=== PATIENT | male | born 1945 | race Two or more races ===

== ENCOUNTER → 2017-02-24 | Outpatient (CLI) | payer MEDICARE, MEDICAID ==
[2017-02-24 10:04] LABS: Basophils # (auto) 0 uL; Basophils % (auto) 0.5 % (0.0-2.0); DEFINITIVE VIEW TRANSMISSION; Eosinophils # (auto) 0.1 uL; Eosinophils % (auto) 1.5 % (0.0-7.0); Hematocrit 44.5 % (41.0-53.0); Hemoglobin 14.7 g/dL (13.5-17.5); Lymphocytes # (auto) 1.7 uL; Lymphocytes % (auto) 23.6 % (10.0-50.0); Mean Corpuscular Hemoglobin 34.9 pg (28.0-32.0); Mean Corpuscular Hgb Conc. 33.1 g/dL (32.0-36.0); Mean Corpuscular Volume 105.5 fL (80.0-100.0); Mean Platelet Volume 8.6 fL (7.4-10.4); Monocytes # (auto) 0.7 uL; Monocytes % (auto) 9.1 % (0.0-12.0); Neutrophils # (auto) 4.8 uL; Neutrophils % (auto) 65.3 % (37.0-80.0); Platelet Count (auto) 246 10^3/uL (140-450); Red Cell Distribution Width 16.5 % (11.6-16.0); White Blood Cell 7.3 10^3/uL (4.4-10.8)
[2017-02-24 11:17] LABS: Albumin 4.3 g/dL (3.4-5.0); BUN/Creatinine Ratio 22.4; Bilirubin, Total 2.4 mg/dL (0.2-1.0); Potassium 4.3 mmol/L (3.5-5.1); Total Protein 8.3 g/dL (6.4-8.2)
== END | disposition home or self-care (01) ==
LOC: LAB 09:14
DX: N18.3 Chronic kidney disease, stage 3 (moderate) (principal); M06.9 Rheumatoid arthritis, unspecified; M25.50 Pain in unspecified joint; D64.9 Anemia, unspecified; I10 Essential (primary) hypertension; Z79.899 Other long term (current) drug therapy
CPT/HCPCS: 36415; 80053; 85025; 85652; 86141

== ENCOUNTER → 2017-05-25 | Outpatient (CLI) | payer MEDICARE, MEDICAID ==
[2017-05-25 10:30] LABS: Basophils # (auto) 0 uL; Basophils % (auto) 0.4 % (0.0-2.0); CONDITION Y; DEFINITIVE SEE PRINTOUT; Eosinophils # (auto) 0.1 uL; Eosinophils % (auto) 1.5 % (0.0-7.0); Hematocrit 41.9 % (41.0-53.0); Hemoglobin 14.1 g/dL (13.5-17.5); Lymphocytes # (auto) 1.9 uL; Lymphocytes % (auto) 21.2 % (10.0-50.0); Mean Corpuscular Hemoglobin 34.7 pg (28.0-32.0); Mean Corpuscular Hgb Conc. 33.5 g/dL (32.0-36.0); Mean Corpuscular Volume 103.5 fL (80.0-100.0); Monocytes # (auto) 0.8 uL; Monocytes % (auto) 8.5 % (0.0-12.0); Neutrophils # (auto) 6.3 uL; Neutrophils % (auto) 68.4 % (37.0-80.0); Platelet Count (auto) 248 10^3/uL (140-450); Red Cell Distribution Width 16.6 % (11.6-16.0); White Blood Cell 9.2 10^3/uL (4.4-10.8)
[2017-05-25 10:55] LABS: Albumin 3.6 g/dL (3.4-5.0); BUN/Creatinine Ratio 14.8; Bilirubin, Total 2.4 mg/dL (0.2-1.0); Calcium 9.3 mg/dL (8.5-10.1); Potassium 4.1 mmol/L (3.5-5.1); Total Protein 6.9 g/dL (6.4-8.2)
== END | disposition home or self-care (01) ==
LOC: LAB 08:02
DX: Z79.899 Other long term (current) drug therapy (principal); M06.9 Rheumatoid arthritis, unspecified; M25.50 Pain in unspecified joint; D64.9 Anemia, unspecified; I10 Essential (primary) hypertension
CPT/HCPCS: 36415; 80053; 85025; 85652; 86141

== ENCOUNTER → 2017-08-29 | Outpatient (CLI) | payer MEDICARE, MEDICAID ==
[2017-08-29 09:43] LABS: Basophils # (auto) 0.1 uL; Eosinophils # (auto) 0.1 uL; Lymphocytes # (auto) 1.8 uL; Mean Corpuscular Volume 104.6 fL (80.0-100.0); Monocytes # (auto) 0.5 uL
[2017-08-29 09:45] LABS: Basophils % (auto) 0.7 % (0.0-2.0); Eosinophils % (auto) 1.5 % (0.0-7.0); Hematocrit 41.2 % (41.0-53.0); Hemoglobin 14.1 g/dL (13.5-17.5); Lymphocytes % (auto) 26.4 % (10.0-50.0); Mean Corpuscular Hemoglobin 35.7 pg (28.0-32.0); Mean Corpuscular Hgb Conc. 34.1 g/dL (32.0-36.0); Mean Platelet Volume 7.5 fL (6.9-10.8); Monocytes % (auto) 6.7 % (0.0-12.0); Neutrophils # (auto) 4.4 uL; Neutrophils % (auto) 64.7 % (37.0-80.0); Nucleated Red Blood Cells % 0.2 %; Platelet Count (auto) 186 10^3/uL (140-450); Red Cell Distribution Width 16.4 % (11.8-14.3); White Blood Cell 6.8 10^3/uL (4.4-10.8)
[2017-08-29 10:15] LABS: Albumin 3.6 g/dL (3.4-5.0); BUN/Creatinine Ratio 20.8; Bilirubin, Total 2.7 mg/dL (0.2-1.0); Calcium 9.5 mg/dL (8.5-10.1); Potassium 4.4 mmol/L (3.5-5.1)
== END | disposition home or self-care (01) ==
LOC: LAB 09:16
DX: M06.9 Rheumatoid arthritis, unspecified (principal); D64.9 Anemia, unspecified; I10 Essential (primary) hypertension; M25.50 Pain in unspecified joint; Z79.899 Other long term (current) drug therapy
CPT/HCPCS: 36415; 80053; 85025; 85652; 86141

== ENCOUNTER → 2017-11-23 | Outpatient (CLI) | payer MEDICARE, MEDICAID ==
[2017-11-23 08:57] LABS: Basophils % (auto) 0.6 % (0.0-2.0); Eosinophils # (auto) 0.1 uL; Hemoglobin 14.4 g/dL (13.5-17.5); Monocytes # (auto) 0.7 uL; Nucleated Red Blood Cells % 0.1 %
[2017-11-23 08:59] LABS: Basophils # (auto) 0.1 uL; Eosinophils % (auto) 1.4 % (0.0-7.0); Hematocrit 42.6 % (41.0-53.0); Lymphocytes # (auto) 1.6 uL; Lymphocytes % (auto) 19.8 % (10.0-50.0); Mean Corpuscular Hemoglobin 36.3 pg (28.0-32.0); Mean Corpuscular Hgb Conc. 33.8 g/dL (32.0-36.0); Mean Corpuscular Volume 107.6 fL (80.0-100.0); Monocytes % (auto) 8.6 % (0.0-12.0); Neutrophils # (auto) 5.6 uL; Neutrophils % (auto) 69.6 % (37.0-80.0); Platelet Count (auto) 238 10^3/uL (140-450); Red Blood Cells 3.96 10^6/uL (4.5-5.90); White Blood Cell 8.1 10^3/uL (4.4-10.8)
[2017-11-23 09:18] LABS: Albumin 3.9 g/dL (3.4-5.0); BUN/Creatinine Ratio 21.7; Bilirubin, Total 2.8 mg/dL (0.2-1.0); CRP High Sensitivity 0.05 mg/dL (< 0.3); Calcium 9.7 mg/dL (8.5-10.1); Potassium 3.9 mmol/L (3.5-5.1); Total Protein 7.8 g/dL (6.4-8.2)
== END | disposition home or self-care (01) ==
LOC: LAB 08:38
DX: I10 Essential (primary) hypertension (principal); M06.9 Rheumatoid arthritis, unspecified; E78.00 Pure hypercholesterolemia, unspecified; I70.0 Atherosclerosis of aorta; D64.9 Anemia, unspecified; Z79.899 Other long term (current) drug therapy
CPT/HCPCS: 36415; 80053; 85025; 85652; 86141

== ENCOUNTER 2020-01-23 10:33 | Inpatient (IN) | payer MEDICARE, MEDICAID ==
[~2020-01-23] VITALS: Ht 175.3 cm; Wt 73.4 kg
[~2020-01-23 10:33] MED LIST: ATOR1TAB PO; FINA5TAB4 PO; FOLI1TAB6 PO; LATA0.0015 EACHEYE; LISI-275 PO; METH2.5T3 PO; METO25TA93 PO; RIV15T PO; TAMS0.4C36 PO
[2020-01-23 11:26] LABS: Basophils # (auto) 0.1 uL; Eosinophils # (auto) 0.1 uL; Lymphocytes # (auto) 1.2 uL; Monocytes # (auto) 0.5 uL; Neutrophils # (auto) 3.5 uL; Nucleated Red Blood Cells % 0.1 %; Red Cell Distribution Width 15.9 % (11.8-14.3)
[2020-01-23 11:29] LABS: Eosinophils % (auto) 2.6 % (0.0-7.0); Hematocrit 40.2 % (41.0-53.0); Hemoglobin 13.4 g/dL (13.5-17.5); Lymphocytes % (auto) 21.8 % (10.0-50.0); Mean Corpuscular Hgb Conc. 33.2 g/dL (32.0-36.0); Mean Corpuscular Volume 102.2 fL (80.0-100.0); Monocytes % (auto) 9.4 % (0.0-12.0); Neutrophils % (auto) 65.2 % (37.0-80.0); Platelet Count (auto) 226 10^3/uL (140-450); Red Blood Cells 3.94 10^6/uL (4.5-5.90); White Blood Cell 5.4 10^3/uL (4.4-10.8)
[2020-01-23 11:41] LABS: Albumin 2.6 g/dL (3.4-5.0); Anion Gap 6 (5-15); Blood Urea Nitrogen 17 mg/dL (7-18); Calcium 8.9 mg/dL (8.5-10.1); Carbon Dioxide 24 mmol/L (21-32); Chloride 110 mmol/L (98-107); Glucose 150 mg/dL (74-106); INR 1.29 (0.9-1.15); Partial Thromboplastin Time 29.9 sec (23.64-32.05); Potassium 3.8 mmol/L (3.5-5.1); Sodium 140 mmol/L (136-145)
[2020-01-23 11:42] LABS: Urine Bacteria FEW /hpf (None Seen); Urine Blood TRACE /uL (Negative); Urine Specific Gravity 1.013 (1.001-1.035); Urine WBC 140 /hpf (0 - 3); Urine WBC Clumps PRESENT /hpf (None Seen)
[2020-01-23 11:48] LABS: Alanine Aminotransferase 35 U/L (16-61); Alkaline Phosphatase 101 U/L (45-117); Aspartate Aminotransferase 38 U/L (15-37); BUN/Creatinine Ratio 13.2; Bilirubin, Total 1.6 mg/dL (0.2-1.0); GFR African American 70 mL/min; GFR Non-African American 58 mL/min; Total Protein 6.2 g/dL (6.4-8.2)
[2020-01-23] MEDS ORDERED: cefTRIAXone 1GM/50ML D5W 50 ML IV ONE ×2 (14:15→15:00)
[2020-01-23] MEDS ORDERED: SODIUM CHLORIDE 0.9% 250 ML IV ONE (14:15)
[2020-01-23] MEDS ORDERED: MORPHINE SULF INJ 2 MG/ML SYRINGE 1ML IV PRN ×2 (15:00)
[2020-01-23] MEDS ORDERED: ACETAMINOPHEN 500 MG TAB PO PRN (15:00)
[2020-01-23] MEDS ORDERED: DEXTROSE (50%) 50ML SYRG IV PRN (15:00)
[2020-01-23] MEDS ORDERED: ONDANSETRON HCL 4 MG/2 ML VIAL IV PRN (15:00)
[2020-01-23] MEDS ORDERED: NITROGLYCERIN 0.4 MG SL TAB SL PRN (15:00)
[2020-01-23] MEDS ORDERED: traMADol HCL 50 MG TAB PO PRN (15:00)
[2020-01-23 16:20] VITALS: BP 106/73
[2020-01-23] MEDS: ACCU-CHEK COMFORT CURVE STRIP VI SCH ×2 (17:54→22:15)
[2020-01-23] MEDS: SODIUM CHLORIDE 0.9% 1,000 ML IV SCH (17:54)
[2020-01-23] MEDS ORDERED: METHOTREXATE 2.5 MG TAB PO SCH (18:00)
[2020-01-23] MEDS ORDERED: AMIODARONE HCL 200 MG TAB PO ONE (18:30)
[2020-01-23] MEDS: RIVAROXABAN 15 MG TAB PO SCH (18:52)
[2020-01-23] MEDS: TAMSULOSIN HYDROCHLORIDE 0.4 MG CAP PO SCH (18:52)
[2020-01-23 21:45] VITALS: BP 117/61
[2020-01-23] MEDS ORDERED: METOPROLOL SUCCINATE XL 50 MG TAB PO SCH (22:00)
[2020-01-23] MEDS: LATANOPROST 0.005 % OPTH(EYE) SOL 2.5ML EACHEYE SCH (22:11)
[2020-01-23] MEDS: ATORVASTATIN 20 MG TAB PO SCH (22:12)
[2020-01-23] MEDS: FAMOTIDINE 20 MG TAB PO SCH (22:12)
[2020-01-23] MEDS: AMIODARONE HCL 200 MG TAB PO SCH (22:13)
[2020-01-24] MEDS: SODIUM CHLORIDE 0.9% 1,000 ML IV SCH ×2 (02:43→11:22)
[2020-01-24 05:58] VITALS: BP 110/67
[2020-01-24] MEDS: ACCU-CHEK COMFORT CURVE STRIP VI SCH ×2 (06:37→11:05)
[2020-01-24] MEDS: FAMOTIDINE 20 MG TAB PO SCH ×2 (09:11→22:03)
[2020-01-24] MEDS: cefTRIAXone 1GM/50ML D5W 50 ML IV SCH (09:11)
[2020-01-24] MEDS: FOLIC ACID 1 MG TAB PO SCH (09:12)
[2020-01-24] MEDS: AMIODARONE HCL 200 MG TAB PO SCH (09:12)
[2020-01-24] MEDS: FINASTERIDE 5 MG TAB PO SCH (09:14)
[2020-01-24] MEDS: LISINOPRIL 5 MG TAB PO SCH (09:14)
[2020-01-24 09:27] VITALS: BP 122/72
[2020-01-24] MEDS ORDERED: ASPirin 81 mg TAB PO SCH (10:00)
[2020-01-24 13:00] VITALS: BP 113/69
[2020-01-24 17:12] VITALS: BP 101/64
[2020-01-24] MEDS: TAMSULOSIN HYDROCHLORIDE 0.4 MG CAP PO SCH (18:46)
[2020-01-24] MEDS: RIVAROXABAN 15 MG TAB PO SCH (18:46)
[2020-01-24 21:46] VITALS: BP 125/68
[2020-01-24] MEDS: LATANOPROST 0.005 % OPTH(EYE) SOL 2.5ML EACHEYE SCH (22:00)
[2020-01-24] MEDS: ATORVASTATIN 20 MG TAB PO SCH (22:03)
[2020-01-24] MEDS: METOPROLOL TARTRATE 25 MG TAB PO SCH (22:03)
[2020-01-25 05:43] VITALS: BP 133/81
[2020-01-25 06:38] LABS: Eosinophils # (auto) 0.2 uL; Eosinophils % (auto) 3.4 % (0.0-7.0); Monocytes # (auto) 0.7 uL; Neutrophils # (auto) 3.4 uL; Red Cell Distribution Width 15.5 % (11.8-14.3)
[2020-01-25 06:41] LABS: Basophils # (auto) 0.1 uL; Basophils % (auto) 1.2 % (0.0-2.0); Hematocrit 34.6 % (41.0-53.0); Hemoglobin 11.8 g/dL (13.5-17.5); Lymphocytes # (auto) 1.1 uL; Lymphocytes % (auto) 20.6 % (10.0-50.0); Mean Corpuscular Hemoglobin 34.9 pg (28.0-32.0); Mean Corpuscular Hgb Conc. 34.2 g/dL (32.0-36.0); Mean Corpuscular Volume 102.1 fL (80.0-100.0); Monocytes % (auto) 12.1 % (0.0-12.0); Neutrophils % (auto) 62.7 % (37.0-80.0); Nucleated Red Blood Cells % 0.1 %; Platelet Count (auto) 191 10^3/uL (140-450); Red Blood Cells 3.39 10^6/uL (4.5-5.90); White Blood Cell 5.4 10^3/uL (4.4-10.8)
[2020-01-25 06:58] LABS: BUN/Creatinine Ratio 11.9; Calcium 8.6 mg/dL (8.5-10.1); Potassium 3.8 mmol/L (3.5-5.1)
[2020-01-25 07:45] VITALS: BP 117/78
[2020-01-25 08:36] VITALS: BP 138/80
[2020-01-25] MEDS: cefTRIAXone 1GM/50ML D5W 50 ML IV SCH (10:09)
[2020-01-25] MEDS: FAMOTIDINE 20 MG TAB PO SCH (10:10)
[2020-01-25] MEDS: FOLIC ACID 1 MG TAB PO SCH (10:10)
[2020-01-25] MEDS: METOPROLOL TARTRATE 25 MG TAB PO SCH (10:10)
[2020-01-25] MEDS: FINASTERIDE 5 MG TAB PO SCH (10:10)
[2020-01-25] MEDS: LISINOPRIL 5 MG TAB PO SCH (10:11)
[2020-01-25 12:53] VITALS: BP 113/73
[2020-01-25 13:14] VITALS: BP 138/80
== END 2020-01-25 14:00 | disposition home or self-care (01) | DRG 309 ==
LOC: ER 10:33 → EDBD 10:33 → TELE 10:34 → TELE-EAST 16:32
PROVIDERS: ADMIT Internal Medicine; ATTEND Internal Medicine
DX: I48.91 Unspecified atrial fibrillation (principal); N39.0 Urinary tract infection, site not specified; I50.9 Heart failure, unspecified; R73.9 Hyperglycemia, unspecified; F03.90 Unspecified dementia, unspecified severity, without behavioral disturbance, psychotic disturbance, mood disturbance, and anxiety; E78.5 Hyperlipidemia, unspecified; I73.9 Peripheral vascular disease, unspecified; M06.9 Rheumatoid arthritis, unspecified; N40.0 Benign prostatic hyperplasia without lower urinary tract symptoms; B95.2 Enterococcus as the cause of diseases classified elsewhere; I11.0 Hypertensive heart disease with heart failure; Z86.73 Personal history of transient ischemic attack (TIA), and cerebral infarction without residual deficits; Z90.49 Acquired absence of other specified parts of digestive tract
CPT/HCPCS: 36415; 70450; 71045; 80048; 80053; 81001; 82550; 82962; 83036; 83880; 84443; 84484; 85025; 85610; 85730; 87081; 87086; 87088; 87186; 96361; 96365; G0378; J0696

== ENCOUNTER 2025-10-16 17:28 | Inpatient (IN) | payer MEDICARE, MEDICAID ==
[~2025-10-16] VITALS: Ht 167.6 cm; Wt 70.8 kg
[~2025-10-16 17:28] MED LIST changes: +ATOR-47 PO; -ATOR1TAB PO; +FOLI-119 PO; -FOLI1TAB6 PO; -LATA0.0015 EACHEYE; +LATA0.008 EACHEYE; +METH2.5T PO; -METH2.5T3 PO; -TAMS0.4C36 PO; +TAMS0.4C39 PO
--- NOTE | 2025-10-16 17:48 | ECG ---
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
--- NOTE | 2025-10-16 17:55 | ED.PDOC ---
HPI Comments HPI: Poor Historian. This is a 80 year old male presenting to the ED with chief complaint of back pain. Patient reports that he has been experiencing pain to just below his right scapula since last night. Patient relays that this occurred while showering. Patient denies any falls, dizziness, chest pain, SOB, N/V/D, abdominal pain, or headache. Patient later found to be in A-Fib with RVR at a rate of 131 in triage. Past Medical History: A-Fib, Dementia, CVA, HTN, HLD Past Surgical History: Denies Social History: Denies smoking, ETOH, or drug use Medications: Xarelto Allergies: NKDA BARRETT: UPPER BACK PAIN, AFIB. HPI: Poor Historian. Past Medical History: Past Surgical History: REVIEW OF SYSTEMS: CONSTITUTIONAL: Denies acute: fever, diaphoresis, chills, generalized weakness. HEAD: Denies acute: headache, photophobia Eyes: Denies acute: Double vision, vision loss, eye pain, eye discharge. EARS: Denies acute: tinnitus, hearing loss, ear discharge, ear pain, THROAT: Denies acute: sore throat, swelling, difficulty swallowing , pain with swallowing, change in voice. NECK: Denies acute: neck pain, neck swelling, stiff neck. HEART: Denies acute : chest pain, palpitations, LUNGS: Denies acute: SOB, wheezing, cough, hemoptysis ABDOMEN: Denies acute: abdominal pain, Nausea, Vomiting, diarrhea, melena , hematemesis, hematochezia SKIN: Denies acute: rash, redness, lesions, itchiness. EXTREMITIES: Denies acute: calf pain, numbness, tingling, weakness, denies pain in extremity. Denies acute: Low back pain. Neuro: Denies acute: focal neurological deficit, motor or sensory focal neurological deficit, tremors, seizure like activity, confusion, dizziness, change in mental status, loss of bowel or bladder function, cauda equina like symptoms. : Denies acute: dysuria, hematuria, flank pain, increase in urinary frequency. PSYCH: Denies acute: hallucination, suicidal ideation, homicidal ideation. PHYSICAL EXAM: General: ----no----acute distress, awake and alert. Head: normocephalic, atraumatic. No raccoon's eyes, no shafer sign. Neck: supple, trachea is midline, no swelling. Throat: Normal phonation. Eyes:, no erythema, no purulent discharge, no proptosis, no icterus. Heart: Irregular rate and rhythm consistent with atrial fibrillation with RVR, no significant murmur appreciated. Lungs: no apparent respiratory distress, Able to speak in full sentences. No wheezing, no rhonchi, no crackles. No stridors Clear to auscultation bilaterally. Abdomen: non tender to palpation, non distended, soft, no guarding, no rebound, + bowel sounds. Neuro: Awake, Alert, oriented to name, self, situation, follows commands Speech is normal. Focal area of tenderness to palpation on the right below the inferior angle of scapula. Denies any fall or trauma. Skin: no petechia, no purpura, no cyanosis, non-pale, not jaundice. Lower extremities: --no - Pitting edema no deformity, no focal swelling, no calf TTP. Makes eye contact. Face: no apparent facial droop. ED COURSE: DISCLAIMER: This medical document was created using an electronic medical record system with voice recognition software and computerized dictation system. Although this document has been carefully reviewed, there might still be some phonetic and typographical errors. Occasional wrong-word or "sound-alike" substitutions may have occurred due to the inherent limitations of voice recognition software. These areas are purely typographical due to imperfections of the software programs and do not reflect any compromise in the patient's medical care. Please read the chart carefully and recognize, using context, where these substitutions have occurred. Chief Complaint: Chest Pain Time Seen by MD: 17:52 Primary Care Provider: CHERRIE Reviewed Notes: Medications, Allergies Allergies: Coded Allergies: NO KNOWN ALLERGIES (Unverified , 01/11/20) Home Meds Reported Medications Latanoprost (LATANOPROST) 0.005 % Anne, 1 DROP EACHEYE qhs, #7.5 ML 3 Refills 01/12/20 Metoprolol Succinate (Metoprolol Succinate Er) 25 Mg Tab, 25 MG PO BID for 30 Days, MG 01/12/20 Folic Acid (Folic Acid) 1 Mg Tab, 1 MG PO DAILY for 30 Days, MG 2/16/20 Finasteride (Finasteride) 5 Mg Tab, 5 MG PO DAILY for 30 Days, MG 01/12/20 Methotrexate (Methotrexate) 2.5 Mg Tab, 10 MG PO QWEEKLY, MG 01/12/20 Tamsulosin Hcl (Tamsulosin Hcl) 0.4 Mg Cap, 0.4 MG PO QPM for 30 Days, MG 01/12/20 Lisinopril (Lisinopril) 5 Mg Tab, 5 MG PO DAILY for 30 Days, MG 01/12/20 Rivaroxaban (Xarelto Tablet) 15 Mg Tb, 15 MG PO DAILY, TAB 01/12/20 Atorvastatin Calcium (ATORVASTATIN CALCIUM) 80 Mg Tab, 1 TAB PO DAILY, #30 TAB 5 Refills 01/12/20 Information Source: Patient Mode of Arrival: Ambulatory EKG EKG : Pulse Rate (adult): 131 Cardiac Rhythm: Afib Comments With RVR Was a procedure done? Was a procedure done?: No CP Differential Dx Differential Diagnosis: A-fib, A-Flutter, Angina, Anxiety / Panic Attack, Atrial Dysrhythmia, Digoxin Toxicity, Electrolyte Disorder, Heart Failure, Hyperthyroidism, Hyperventilation, Hypoxia, MAT, OR, PAC's, Pacemaker Malfunction, PSVT, Pulmonary Embolus, PVC's, Renal Failure, Sinus Tachycardia, Torsades De Pointes, Ventricular Dysrhythmia, V-Fib, V-Tach, WPW X-Ray, Labs, Meds, VS Vital Signs Date Time Temp Pulse Resp B/P (MAP) Pulse Ox O2 Delivery O2 Flow Rate FiO2 10/16/25 20:38 98 10/16/25 20:15 86 17 152/80 (104) 100 10/16/25 20:00 93 10/16/25 18:30 102 10/16/25 18:23 101 16 100 Room Air* 0 21 10/16/25 18:23 97.8 101 16 129/74 (92) 99 97.8 10/16/25 17:55 131 10/16/25 17:46 131 10/16/25 17:30 64 16 117/63 Lab Test 10/16/25 18:39 10/16/25 17:48 Range/Units Troponin I High Sensitivity 10 11 </=54 ng/L Hepatitis A Antibody Total Positive H Negative Hepatitis B Surface Antigen Negative Negative Hepatitis B Surface Antibody Negative Negative Hepatitis B Core Total Antibody Negative Negative Hepatitis C Antibody Negative Negative White Blood Count 5.7 4.4-10.8 10^3/uL Red Blood Count 3.19 L 4.5-5.90 10^6/uL Hemoglobin 11.2 L 13.5-17.5 g/dL Hematocrit 33.8 L 41.0-53.0 % Mean Corpuscular Volume 106.0 H 80.0-100.0 fL Mean Corpuscular Hemoglobin 35.3 H 28.0-32.0 pg Mean Corpuscular Hemoglobin Concent 33.3 32.0-36.0 g/dL Red Cell Distribution Width 16.7 H 11.8-14.3 % Platelet Count 76 L 140-450 10^3/uL Mean Platelet Volume 8.4 6.9-10.8 fL Neutrophils (%) (Auto) 84.4 H 37.0-80.0 % Lymphocytes (%) (Auto) 13.4 10.0-50.0 % Monocytes (%) (Auto) 1.6 0.0-12.0 % Eosinophils (%) (Auto) 0.4 0.0-7.0 % Basophils (%) (Auto) 0.2 0.0-2.0 % Neutrophils # (Auto) 4.8 1.6-8.6 10 ^3/uL Lymphocytes # (Auto) 0.8 0.4-5.4 10 ^3/uL Monocytes # (Auto) 0.1 0-1.3 10 ^3/uL Eosinophils # (Auto) 0 0-0.8 10 ^3/uL Basophils # (Auto) 0 0-0.2 10 ^3/uL Nucleated Red Blood Cells 0.2 % Sodium Level 141 136-145 mmol/L Potassium Level 3.9 3.5-5.1 mmol/L Chloride Level 107 98-107 mmol/L Carbon Dioxide Level 18 L 20-31 mmol/L Anion Gap 16 H 5-15 Blood Urea Nitrogen 41 H 9-23 mg/dL Creatinine 1.07 0.700-1.30 mg/dL Glomerular Filtration Rate Calc 69 >90 mL/min BUN/Creatinine Ratio 38.3 H 10.0-20.0 Serum Glucose 156 H 74-106 mg/dL Hemoglobin A1c 5.9 H <5.7 % A1C Calcium Level 9.5 8.7-10.4 mg/dL Magnesium Level 1.9 1.6-2.6 mg/dL Total Bilirubin 4.4 H 0.2-1.0 mg/dL Aspartate Amino Transferase (AST) 66 H 13-40 U/L Alanine Aminotransferase (ALT) 114 H 7-40 U/L Alkaline Phosphatase 91 46-116 U/L B-Type Natriuretic Peptide 151.31 0-100 pg/mL Total Protein 6.3 5.7-8.2 g/dL Albumin 3.7 3.2-4.8 g/dL [place] [id number] Ph: [phone] DIAGNOSTIC IMAGING Diagnostic Imaging Report : [id number] Signed PATIENT: ISIS BARRETT ACCT: [id number] UNIT: [id number] : 1945 LOC: ER ROOM / BED: / AGE / SEX: 80 / M ADM STATUS: REG ER SERVICE 39 ORDERING PHYSICIAN: ROMERO MARTINEZ DO PROCEDURE(s): CXRP - CHEST PORTABLE REASON: chest pain ORDER NUMBER(s): [id number], ACCESSION NUMBER(s): [id number] EXAM: XY CHEST PORTABLE HISTORY: chest pain TECHNIQUE: 1 view of the chest COMPARISON: None FINDINGS/IMPRESSION: LUNGS: No pleural effusion, consolidation, or pneumothorax. MEDIASTINUM: Unremarkable. BONES: No acute osseous abnormality. Left shoulder arthroplasty. Question sequelae of prior left lateral upper rib fractures. OTHER: None. ATED BY: DWIGHT CHAVEZ MD DICTATED DATE/TIME: 10/16/251855 SIGNED BY: DWIGHT CHAVEZ MD SIGNED DATE/TIME: 10/16/251855 CC: Time of 1ST Reevaluation: 18:52 Reevaluation 1ST: Unchanged Patient Education/Counseling: Diagnosis, Treatment Family Education/Counseling: No Family Present Comments MDM: patient presented with the above HPI.---cardiac---workup was initiated. patient was found with the above mentioned diagnosis. the following medications were ordered: please refer to order lists of meds and tests obtained by myself Dr. Martinez. Patient ED course and VS have been stabilized. Patient has been reassessed in the ED and remained in a stable condition. Patient has been observed in the ED adequate length of time to insure improvement/stability. Escalation of care considered: Consideration of escalation to observation or admission Patient has been in and out of atrial fibrillation with RVR. Patient was ADMITTED to the medicine team for further evaluation and treatment of their presentation. All the reports of any imaging studies that were ordered by myself were reviewed by myself. Departure 1 Departure Time of Disposition: 19:16 Impression: Primary Impression: Atrial fibrillation with RVR Additional Impressions: Hyperbilirubinemia Thrombocytopenia Disposition: ADMITTED INPATIENT Admit to: Tele Condition: Guarded Discharged With: Self Critical Care Note Critical Care Time?: Yes (45 min-critical care time only) Heart Score Heart Score: Heart Score Response (Comments) Value History Slightly Suspicious 0 EKG Repolarization Disturb 1 Age >65 2 Risk Factors >3 or Hx ASHD 2 Troponin Normal limit 0 Total 5 I personally scribed for ROMERO MARTINEZ DO ([email or web address]) on 10/16/25 at 17:55. Electronically submitted by Vinayak Benoit ([email or web address]). I personally scribed for ROMERO MARTINEZ DO ([email or web address]) on 10/16/25 at 21:54. Electronically submitted by Cindy Rojas ([email or web address]). ROMERO MARTINEZ DO Oct 16, 2025 17:55
[2025-10-16 18:01] LABS: Mean Corpuscular Hemoglobin 35.3 pg (28.0-32.0); Nucleated Red Blood Cells % 0.2 %
[2025-10-16 18:03] LABS: Hematocrit 33.8 % (41.0-53.0); Hemoglobin 11.2 g/dL (13.5-17.5); Mean Corpuscular Volume 106.0 fL (80.0-100.0)
[2025-10-16 18:18] LABS: Albumin 3.7 g/dL (3.2-4.8); Alkaline Phosphatase 91 U/L (46-116); Anion Gap 16 (5-15); BUN/Creatinine Ratio 38.3 (10.0-20.0); Calcium 9.5 mg/dL (8.7-10.4); Potassium 3.9 mmol/L (3.5-5.1); Sodium 141 mmol/L (136-145); Total Protein 6.3 g/dL (5.7-8.2)
[2025-10-16 18:23] VITALS: PULSE 101; RESP 16; O2SAT 100
[2025-10-16 18:24] LABS: Alanine Aminotransferase 114 U/L (7-40); Bilirubin, Total 4.4 mg/dL (0.2-1.0); Blood Urea Nitrogen 41 mg/dL (9-23); Carbon Dioxide 18 mmol/L (20-31); Chloride 107 mmol/L (98-107); Glucose 156 mg/dL (74-106)
--- NOTE | 2025-10-16 18:59 | DVH ---
EXAM: XY CHEST PORTABLE HISTORY: chest pain TECHNIQUE: 1 view of the chest COMPARISON: None FINDINGS/IMPRESSION: LUNGS: No pleural effusion, consolidation, or pneumothorax. MEDIASTINUM: Unremarkable. BONES: No acute osseous abnormality. Left shoulder arthroplasty. Question sequelae of prior left lateral upper rib fractures. OTHER: None.
--- NOTE | 2025-10-16 19:09 | ECG ---
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
--- NOTE | 2025-10-16 20:57 | DVHHPRES ---
History of Present Illness Resident Creating Document: JERALD PAL History of Present Illness Mr. Garth Phillip, an 80 year old male with past medical history of AFib on rivaroxaban, dementia , hypertension, questionable CVA, UTI two years ago, PAD. with history of UNDERCOATER at [facility], stomach surgery for unknown indications at [facility], presented to the ER with the complaints of left-sided CVA shoulder pain and lower back pain. The son was accompanying the patient. The patient denies any chest pain, shortness of breath, fever, urinary symptoms frequency, urgency, burning sensation or any other complaints. The shoulder pain is new onset since last three days. Past medical history: As above Past surgical history: As above Allergies: None Smoking: Never Alcohol: Quit many years ago. Previously heavy drinker Drugs: Denied Home medications: Apixaban, atorvastatin, finasteride, folic acid, latanoprost, lisinopril, metoprolol succinate, tamsulosin Code status: Full code, patient wants to donate all his organ. Review of Systems Musculoskeletal: shoulder pain Allergies: Coded Allergies: NO KNOWN ALLERGIES (Unverified , 01/11/20) Exam Vital Signs Vital Signs Date Time Temp Pulse Resp B/P (MAP) Pulse Ox O2 Delivery O2 Flow Rate FiO2 10/16/25 20:15 86 17 152/80 (104) 100 10/16/25 18:23 Room Air* 0 21 10/16/25 18:23 97.8 97.8 Exam Pt is lying on bed General Appearance: Alert, Oriented X3, Cooperative, Mild distress HEENT: Atraumatic, Mucous membranes moist/pink Respiratory: Clear to auscultation, Normal air movement, No added sounds Cardiovascular: Irregular rate, Normal S1, Normal S2, No murmurs Abdominal/ : Active bowel sounds, Soft, no distention, no tenderness Extremities: No edema, Normal pulses, left shoulder tenderness Skin: No Significant rash, except past surgical scars Neuro: Normal speech, sensorimotor deficits none Psych/Mental Status: Mental status NL, Mood NL Nurse was there as geriatric care manager during examination Labs/Xrays Labs Test 10/16/25 18:39 10/16/25 17:48 Range/Units Troponin I High Sensitivity 10 </=54 ng/L White Blood Count 5.7 4.4-10.8 10^3/uL Red Blood Count 3.19 L 4.5-5.90 10^6/uL Hemoglobin 11.2 L 13.5-17.5 g/dL Hematocrit 33.8 L 41.0-53.0 % Mean Corpuscular Volume 106.0 H 80.0-100.0 fL Mean Corpuscular Hemoglobin 35.3 H 28.0-32.0 pg Mean Corpuscular Hemoglobin Concent 33.3 32.0-36.0 g/dL Red Cell Distribution Width 16.7 H 11.8-14.3 % Platelet Count 76 L 140-450 10^3/uL Mean Platelet Volume 8.4 6.9-10.8 fL Neutrophils (%) (Auto) 84.4 H 37.0-80.0 % Lymphocytes (%) (Auto) 13.4 10.0-50.0 % Monocytes (%) (Auto) 1.6 0.0-12.0 % Eosinophils (%) (Auto) 0.4 0.0-7.0 % Basophils (%) (Auto) 0.2 0.0-2.0 % Neutrophils # (Auto) 4.8 1.6-8.6 10 ^3/uL Lymphocytes # (Auto) 0.8 0.4-5.4 10 ^3/uL Monocytes # (Auto) 0.1 0-1.3 10 ^3/uL Eosinophils # (Auto) 0 0-0.8 10 ^3/uL Basophils # (Auto) 0 0-0.2 10 ^3/uL Nucleated Red Blood Cells 0.2 % Sodium Level 141 136-145 mmol/L Potassium Level 3.9 3.5-5.1 mmol/L Chloride Level 107 98-107 mmol/L Carbon Dioxide Level 18 L 20-31 mmol/L Anion Gap 16 H 5-15 Blood Urea Nitrogen 41 H 9-23 mg/dL Creatinine 1.07 0.700-1.30 mg/dL Glomerular Filtration Rate Calc 69 >90 mL/min BUN/Creatinine Ratio 38.3 H 10.0-20.0 Serum Glucose 156 H 74-106 mg/dL Calcium Level 9.5 8.7-10.4 mg/dL Magnesium Level 1.9 1.6-2.6 mg/dL Total Bilirubin 4.4 H 0.2-1.0 mg/dL Aspartate Amino Transferase (AST) 66 H 13-40 U/L Alanine Aminotransferase (ALT) 114 H 7-40 U/L Alkaline Phosphatase 91 46-116 U/L B-Type Natriuretic Peptide 151.31 0-100 pg/mL Total Protein 6.3 5.7-8.2 g/dL Albumin 3.7 3.2-4.8 g/dL SEPSIS Sepsis Screen Date sepsis recognized/suspect: Oct 16, 2025 Time Sepsis recognized/suspect: 1734 Recent Procedure: No On Antibiotic Therapy: No Respiratory Rate >20: No Heart Rate >90: No Temp<36 C (96.8 F) or >38.3 C: No SBP <90 or MAP <65 mmHG: No New Acute Mental Status Change: No Is the patient on CPAP, BIPAP,: No Physician Orders Chest Portable (10/16/25 17:40) Urinalysis (10/16/25 17:30) Electrocardigram (10/16/25 17:30) Electrocardigram (10/16/25 18:30) Electrocardigram (10/16/25 20:30) Admit (10/16/25 20:48) Notify Md Of Changes From Base (10/16/25 20:48) Emergency Dysrhythmia Protocol (10/16/25 20:48) Rhythm Strips Once Every Shift (10/16/25 20:48) Drafter Commercial For 24 Hours (10/16/25 20:48) Enoxaparin Sodium (Lovenox) (10/17/25 10:00) Urinalysis (10/16/25 20:50) Drug Screen (10/16/25 20:50) Blood Alcohol (10/16/25 20:50) Comprehensive Hepatitis Panel (10/16/25 20:50) PTPTT (10/16/25 20:50) LIVER (10/16/25 20:50) Vital Signs Date Time Temp Pulse Resp B/P (MAP) Pulse Ox O2 Delivery O2 Flow Rate FiO2 10/16/25 20:15 86 17 152/80 (104) 100 10/16/25 20:00 93 10/16/25 18:30 102 10/16/25 18:23 101 16 100 Room Air* 0 21 10/16/25 18:23 97.8 101 16 129/74 (92) 99 97.8 10/16/25 17:55 131 10/16/25 17:46 131 10/16/25 17:30 64 16 117/63 Laboratory Tests Test 10/16/25 17:48 White Blood Count 5.7 10^3/uL (4.4-10.8) Assessment/Plan Assessment/Plan AFib with RVR with secondary hypercoagulable state (ChadVasc 6) -metoprolol succinate -therapeutic Lovenox -CXR ordered Acute complicated UTI -urinalysis: UTI -IV ceftriaxone -urine bacterial culture ordered Hypertensive heart disease with possible chronic diastolic heart failure - Lisinopril 5 mg Prediabetic, HbA1c 5.9 - counseled patient regarding weight loss, lifestyle modification and physical exercise BPH - Tamsulosin GI prophylaxis: Pantoprazole DVT prophylaxis: Lovenox Diet: Cardiac Goals of care discussed with the patient for more than 27 minutes: Full code status Case discussed with Dr. Kelley, patient and RN Plan discussed with: Patient, Other (RN) My Orders Orders - JERALD PAL RESIDENT Procedure Category Date Status Time Admit ADMIT 10/16/25 Transmitted 20:48 Notify Of Changes [facility] 10/16/25 In Process From Base 20:48 Emergency Dysrhythmia [facility] 10/16/25 In Process Protocol 20:48 Rhythm Strips Once [facility] 10/16/25 In Process Every Shift 20:48 Drafter Commercial For [facility] 10/16/25 In Process 24 Hours 20:48 Enoxaparin Sodium PHA 10/17/25 Logged (Lovenox) 10:00 Urinalysis LAB 10/16/25 Logged 20:50 Drug Screen LAB 10/16/25 Logged 20:50 Blood Alcohol LAB 10/16/25 Logged 20:50 Comprehensive LAB 10/16/25 Logged Hepatitis Panel 20:50 PTPTT LAB 10/16/25 Logged 20:50 LIVER US 10/16/25 Logged 20:50 Date of Service: Oct 17, 2025 Billing Provider: JAMARCUS KELLEY MD Common Visit Codes: 48057-BCO/OBS SAME DATE (HIGH) Secondary Visit Codes: 03442-RREPVAJX CARE PLAN 30 MINUTES JERALD PAL RESIDENT Oct 16, 2025 20:57 SANYA LARA RESIDENT Oct 17, 2025 00:56
[2025-10-16] MEDS ORDERED: ENOXAPARIN SOD 60 MG/0.6 ML SYRINGE SC SCH (21:15)
[2025-10-16] MEDS ORDERED: HYDROcodone-ACET 5/325MG TAB PO PRN (21:30)
[2025-10-16 21:33] LABS: Urine Protein, UAD TRACE (Negative)
[2025-10-16 21:42] LABS: INR 1.06 (0.9-1.15); Partial Thromboplastin Time 22.9 SEC (24.5-34.5); Prothrombin Time 11.2 sec (9.3-11.8)
[2025-10-16 21:47] LABS: Amphetamine Screen, Urine Neg (NEGATIVE)
--- NOTE | 2025-10-16 21:51 | DVH ---
XY L SHOULDER 2+ VIEW XRAY Indication: 80 years old, Male; Lt shoulder pain. Comparison: None Findings: No acute fracture or dislocation. Left shoulder arthroplasty. Intact hardware. IMPRESSION: NO ACUTE FRACTURE OR DISLOCATION.
[2025-10-16 21:56] LABS: Barbiturate Scree,Urine Neg (NEGATIVE); Benzodiazephine Screen, Urine Neg (NEGATIVE); Cannabinoid Screen, Urine Neg (NEGATIVE); Cocaine Screen, Urine Neg (NEGATIVE); Opiate Scree,Urine Neg (NEGATIVE); Phencyclidine Screen, Urine Neg (NEGATIVE)
[2025-10-16] MEDS: HYDROcodone-ACET 5/325MG TAB PO ONE (22:06)
--- NOTE | 2025-10-16 22:50 | DVH ---
US limited, RUQ Indication: Abnormal LFTs Comparison: None Technique: Limited ultrasound of the abdomen was performed and reviewed. Findings: The pancreas is not seen due to overlying bowel gas. Chronic hepatocellular disease. The gallbladder is not visualized which may be surgically absent. The common bile duct is not visualized. The right kidney is 9.2 cm. No evidence for hydronephrosis. Questionable echogenic area in the right chest region. IMPRESSION: Limited study with gallbladder and common bile duct not visualized. Chronic hepatocellular disease. Questionable echogenic area in the right chest region is nonspecific and may be artifactual. Correlate with dedicated chest imaging.
[2025-10-16] MEDS ORDERED: METHOTREXATE 2.5 MG TAB PO SCH (23:30)
[2025-10-17] VITALS (9 sets, daily range): BP systolic 103–143; BP diastolic 60–81; PULSE 70–104; RESP 16–17; TEMP 97–99.5; O2SAT 95–100
--- NOTE | 2025-10-17 00:49 | ECG ---
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
[2025-10-17 01:33] LABS: COVID19 ANTIGEN SOFIA FIA NEGATIVE (NEGATIVE)
[2025-10-17] MEDS: METOPROLOL SUCCINATE XL 50 MG TAB PO ONE ×2 (03:04)
[2025-10-17] MEDS: PANTOPRAZOLE 40 MG TAB PO SCH (06:12)
[2025-10-17] MEDS ORDERED: ENOXAPARIN SOD 60 MG/0.6 ML SYRINGE SC SCH (10:00)
[2025-10-17 11:22] LABS: Hepatitis A Total Antibody Positive (Negative); Hepatitis B Surface Antigen Negative (Negative); Hepatitis C Antibody Negative (Negative)
[2025-10-17] MEDS: FINASTERIDE 5 MG TAB PO SCH (11:27)
[2025-10-17] MEDS: LISINOPRIL 5 MG TAB PO SCH (11:27)
[2025-10-17] MEDS: METOPROLOL SUCCINATE XL 50 MG TAB PO SCH (11:27)
[2025-10-17] MEDS: FOLIC ACID 1 MG TAB PO SCH (11:27)
[2025-10-17 12:52] LABS: Hemoglobin 9.6 g/dL (13.5-17.5)
[2025-10-17 12:53] LABS: Hematocrit 27.5 % (41.0-53.0); Mean Corpuscular Hemoglobin 35.6 pg (28.0-32.0); Mean Corpuscular Volume 102.2 fL (80.0-100.0); Nucleated Red Blood Cells % 0.1 %
[2025-10-17 13:05] LABS: Alkaline Phosphatase 77 U/L (46-116); Anion Gap 8 (5-15); BUN/Creatinine Ratio 33.3 (10.0-20.0); Calcium 9.2 mg/dL (8.7-10.4); Carbon Dioxide 26 mmol/L (20-31); Chloride 106 mmol/L (98-107); Glucose 100 mg/dL (74-106); Potassium 4.5 mmol/L (3.5-5.1); Sodium 140 mmol/L (136-145); Total Protein 6.0 g/dL (5.7-8.2)
[2025-10-17 13:06] LABS: Alanine Aminotransferase 100 U/L (7-40); Albumin 3.3 g/dL (3.2-4.8); Bilirubin, Total 3.2 mg/dL (0.2-1.0); Blood Urea Nitrogen 37 mg/dL (9-23)
[2025-10-17 13:17] LABS: Anisocytosis Slight
[2025-10-17 13:18] LABS: Ovalocytes FEW
--- NOTE | 2025-10-17 13:59 | DVHSR ---
APPROVED REPORT EXAM: Two-dimensional and M-mode echocardiogram with Doppler and color Doppler. Blood Pressure: 143/81 mmHg INDICATION Atrial Fibrillation RISK FACTORS Height: 5'6", Weight: 152 DIMENSIONS LVDd 4.0 (3.8-5.7cm) LA (2D) 5.1 (1.9-4.0cm) Aortic Root 3.5 (2.0-3.7cm) LVDs 2.5 (2.5-4.0cm) LA (MM) (1.9-4.0cm) Aortic Cusp Exc 1.9 (1.5-2.0cm) EF (%) 66.0 (55-70%) Rt. Atrium 4.6 (1.9-4.0cm) Asc. Aorta 3.2 cm IVSd 1.1 (0.7-1.1cm) RV (D) (1.8-2.4cm) PWd 1.0 (0.7-1.1cm) Mitral Valve Mitral Mitral Stenosis E wave 0.64m/s MV Mean GR. mmHg E/A ratio 0.0 2D MVA cm2 Aortic Valve Aortic Valve Aortic Stenosis V1 0.57m/s AO Mean GR. 2mmHg V2 0.78m/s AO Peak GR. 2mmHg LVOT Diameter 2.1 (1.8-2.4cm) Doppler HODA 2.53cm2 Pulmonic Valve V2 0.67m/s Tricuspid Valve TR Velocity 2.63m/s RVSP 31mmHg Other Information Quality : Technically Limited Rhythm : Technically limited study due to body habitus. Conclusion Technically good study. Undetermined rhythm. Biatrial enlargement. Aortic root enlargement with concentric LVH. RV enlargement. Valves are normal. EF of 55-60% with normal RV function. Moderate tricuspid regurgitation. No pericardial effusion masses or vegetations discernible.
[2025-10-17] MEDS: TAMSULOSIN HYDROCHLORIDE 0.4 MG CAP PO SCH (16:55)
[2025-10-17] MEDS: ENOXAPARIN SOD 60 MG/0.6 ML SYRINGE SC ONE (16:56)
--- NOTE | 2025-10-17 18:03 | DVHPNRES ---
Progress Note Date Seen: Oct 17, 2025 Resident Creating Document: ÓSCAR DONATO RESIDENT Medical Necessity Reason Pt with a Central, PICC or Fol: No Subjective Review of Systems Mr. Garth Phillip, an 80 year old male with past medical history of AFib on rivaroxaban, dementia , hypertension, questionable CVA, UTI two years ago, PAD. 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 The son was accompanying the patient. The patient denies any chest pain, shortness of breath, fever, urinary symptoms frequency, urgency, burning sensation or any other complaints. The shoulder pain is new onset since last three days. Past medical history: As above Past surgical history: As above Allergies: None Smoking: Never Alcohol: Quit many years ago. Previously heavy drinker Drugs: Denied Lives with: Son Home medications: Apixaban, atorvastatin, finasteride, folic acid, latanoprost, lisinopril, metoprolol succinate, tamsulosin Code status: Full code, patient wants to donate all his organ. 10/17/25: Patient seen at bedside. Patient is A&O x1. Has dementia. Very poor historian. Patient complains of 5/10 shoulder pain and lower back pain. Patient is stopped on Lovenox as his platelets are dropping. Monitor CBC. Patient has a UTI urinalysis positive for UTI. Called son, did not answer. Objective vital signs Vital Sign Date Time Temp Pulse Resp B/P (MAP) Pulse Ox O2 Delivery O2 Flow Rate FiO2 10/17/25 16:55 97.4 70 16 103/60 (74) 99 97.4 10/17/25 08:05 Room Air* 0 21 Total Intake and Output 10/16/25 10/16/25 10/17/25 15:00 23:00 07:00 Intake Total 800 ml Balance 800 ml medications Current Medications Medications Dose Ordered Sig/Aleksey Route Start Time Stop Time Status Last Admin Dose Admin Acetaminophen/ Hydrocodone Bitart 1 tab Q4HPRN PRN PO 10/16/25 21:30 Ceftriaxone Sodium 50 ml @ 100 mls/hr DAILY@09 IV 10/17/25 09:00 10/17/25 11:27 100 MLS/HR Finasteride 5 mg DAILY PO 10/17/25 10:00 10/17/25 11:27 5 MG Lisinopril 5 mg DAILY PO 10/17/25 10:00 10/17/25 11:27 5 MG Methotrexate 10 mg QWEEKLY PO 10/16/25 23:30 Tamsulosin HCl 0.4 mg QPM PO 10/17/25 18:00 10/17/25 16:55 0.4 MG Atorvastatin Calcium 80 mg HS PO 10/17/25 22:00 Folic Acid 1 mg DAILY PO 10/17/25 10:00 10/17/25 11:27 1 MG Metoprolol Succinate 25 mg BID PO 10/17/25 10:00 10/17/25 11:27 25 MG Pantoprazole Sodium 40 mg DAILY@0600 PO 10/17/25 06:00 10/17/25 06:12 40 MG Examination General: Patient following commands. A and O x 1 HEENT: Normocephalic, atraumatic, moist mucous membranes Respiratory/pulmonary: Clear lungs bilaterally, vesicular murmurs present in almost all lung sadler, no associated crackles or wheezes. Cardiovascular: Normal heart sounds S1 and S2 with no associated murmurs Abdomen: Abdomen nondistended, there is no pain to palpation in any of the abdominal quadrants, no palpable masses. Extremities: There is no peripheral edema present at the lower extremities. Peripheral Pulses: 3+ Radial (R). 3+ Radial (L). 3+ Dorsalis pedis (R). 3+ Dorsalis pedis(L) Skin: No rashes or pruritus, there is no sacral edema present at this time. Neurological: Intact cranial nerves with no focal neurologic deficits laboratory and microbiology Laboratory Tests 10/17/25 12:15 Test 10/17/25 12:15 Range/Units Serum Glucose 100 74-106 mg/dL Problem List/Assessment/Plan Problem List/Assessment/Plan Intractable shoulder pain Chronic lower back pain - shoulder x-ray NO ACUTE FRACTURE OR DISLOCATION. - [place] 5 AFib with RVR with secondary hypercoagulable state (ChadVasc 6) Moderate tricuspid regurgitation. - Echo showed Biatrial enlargement. Aortic root enlargement with concentric LVH. RV enlargement. -metoprolol succinate Acute complicated UTI - IV fluids -IV ceftriaxone -urinalysis: UTI -urine bacterial culture ordered Thrombocytopenia - Lovenox held - monitor CBC Chronic hepatocellular disease. transaminitis - monitor labs Hypertensive heart disease with possible chronic diastolic heart failure Dyslipidemia - echo showed EF of 55-60% with normal RV function. - Lisinopril 5 mg - atorvastatin 80 Prediabetic, HbA1c 5.9 - counseled patient regarding weight loss, lifestyle modification and physical exercise BPH - Tamsulosin Diet: Cardiac PPI prophylaxis: Pantoprazole DVT prophylaxis: Lovenox held due to low platelets Goals of care addressed with the patient for more than 27 minutes: Full code status Case discussed with Dr. Boswell , patient and nurse Plan discussed with: Patient Date of Service: Oct 17, 2025 Billing Provider: ARIN BOSWELL MD Common Visit Codes: [id number] INP/OBS CARE(HIGH) ÓSCAR DONATO RESIDENT Oct 17, 2025 18:03 ARIN BOSWELL MD Oct 18, 2025 13:31
[2025-10-17] MEDS: ATORVASTATIN 20 MG TAB PO SCH (21:22)
[2025-10-18] VITALS (8 sets, daily range): BP systolic 80–113; BP diastolic 45–60; PULSE 49–81; RESP 16–17; TEMP 97.9–98.5; O2SAT 97–100
[2025-10-18 06:57] LABS: Nucleated Red Blood Cells % 0.2 %
[2025-10-18 06:59] LABS: Hematocrit 26.6 % (41.0-53.0); Hemoglobin 9.4 g/dL (13.5-17.5); Mean Corpuscular Hemoglobin 35.8 pg (28.0-32.0); Mean Corpuscular Volume 101.5 fL (80.0-100.0)
[2025-10-18 07:12] LABS: Albumin 3.2 g/dL (3.2-4.8); Alkaline Phosphatase 74 U/L (46-116); Anion Gap 9 (5-15); BUN/Creatinine Ratio 29.7 (10.0-20.0); Calcium 9.5 mg/dL (8.7-10.4); Carbon Dioxide 25 mmol/L (20-31); Glucose 92 mg/dL (74-106); Potassium 4.1 mmol/L (3.5-5.1); Sodium 141 mmol/L (136-145); Total Protein 5.7 g/dL (5.7-8.2)
[2025-10-18 07:14] LABS: Alanine Aminotransferase 95 U/L (7-40); Bilirubin, Total 2.5 mg/dL (0.2-1.0); Blood Urea Nitrogen 33 mg/dL (9-23); Chloride 107 mmol/L (98-107)
[2025-10-18] MEDS: SODIUM CHLORIDE 0.9% 500 ML IV ONE (12:15)
--- NOTE | 2025-10-18 18:49 | DVHPNRES ---
Progress Note Date Seen: Oct 18, 2025 Resident Creating Document: GÓMEZ DUBOSE RESIDENT Medical Necessity Reason Pt with a Central, PICC or Fol: No Subjective Review of Systems Mr. Garth Phillip, an 80 year old male with past medical history of AFib on rivaroxaban, dementia , hypertension, questionable CVA, UTI two years ago, PAD. 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 The son was accompanying the patient. The patient denies any chest pain, shortness of breath, fever, urinary symptoms frequency, urgency, burning sensation or any other complaints. The shoulder pain is new onset since last three days. Past medical history: As above Past surgical history: As above Allergies: None Smoking: Never Alcohol: Quit many years ago. Previously heavy drinker Drugs: Denied Lives with: Son Home medications: Apixaban, atorvastatin, finasteride, folic acid, latanoprost, lisinopril, metoprolol succinate, tamsulosin Code status: Full code, patient wants to donate all his organ. 10/17/25: Patient seen at bedside. Patient is A&O x1. Has dementia. Very poor historian. Patient complains of 5/10 shoulder pain and lower back pain. Patient is stopped on Lovenox as his platelets are dropping. Monitor CBC. Patient has a UTI urinalysis positive for UTI. Called son, did not answer. 10/18/25- patient was seen at bedside today. Patient looked delirious today. He has no new complaints. Comprehensive hepatitis panel was ordered for the patient. Platelet count today was 41, methotrexate was stopped. Lovenox is being held due to decreasing platelet count, risk of stroke and risk versus benefits have been discussed with patient and daughter, and they verbalized understanding of the same. Free T4 level was ordered for the patient. Blood pressure dropped to eighty by 81/56, for which he was given 500 cc bolus of NS. Objective vital signs Vital Sign Date Time Temp Pulse Resp B/P (MAP) Pulse Ox O2 Delivery O2 Flow Rate FiO2 10/18/25 16:45 98.1 66 17 85/47 (60) 97 98.1 10/18/25 08:00 Room Air* 0 21 Total Intake and Output 10/17/25 10/17/25 10/18/25 15:00 23:00 07:00 Intake Total 236 ml 150 ml 400 ml Output Total 400 ml Balance 236 ml -250 ml 400 ml medications Current Medications Medications Dose Ordered Sig/Aleksey Route Start Time Stop Time Status Last Admin Dose Admin Acetaminophen/ Hydrocodone Bitart 1 tab Q4HPRN PRN PO 10/16/25 21:30 Ceftriaxone Sodium 50 ml @ 100 mls/hr DAILY@09 IV 10/17/25 09:00 10/18/25 10:18 100 MLS/HR Finasteride 5 mg DAILY PO 10/17/25 10:00 10/18/25 10:19 5 MG Lisinopril 5 mg DAILY PO 10/17/25 10:00 10/18/25 10:19 5 MG Tamsulosin HCl 0.4 mg QPM PO 10/17/25 18:00 10/18/25 18:06 0.4 MG Atorvastatin Calcium 80 mg HS PO 10/17/25 22:00 10/17/25 21:22 80 MG Folic Acid 1 mg DAILY PO 10/17/25 10:00 10/18/25 10:18 1 MG Metoprolol Succinate 25 mg BID PO 10/17/25 10:00 10/17/25 21:24 25 MG Pantoprazole Sodium 40 mg DAILY@0600 PO 10/17/25 06:00 10/18/25 06:09 40 MG Examination General: Patient following commands. A and O x 1 HEENT: Normocephalic, atraumatic, moist mucous membranes Respiratory/pulmonary: Clear lungs bilaterally, no associated crackles or wheezes. Cardiovascular: Normal heart sounds S1 and S2 with no associated murmurs Abdomen: Abdomen nondistended, there is no pain to palpation in any of the abdominal quadrants, no palpable masses. Extremities: There is no peripheral edema present at the lower extremities. Peripheral Pulses: 3+ Radial (R). 3+ Radial (L). 3+ Dorsalis pedis (R). 3+ Dorsalis pedis(L) Skin: No rashes or pruritus, there is no sacral edema present at this time. Neurological: Intact cranial nerves with no focal neurologic deficits laboratory and microbiology Laboratory Tests 10/18/25 06:09 Test 10/18/25 06:09 Range/Units Serum Glucose 92 74-106 mg/dL Labs and/or images reviewed: Labs reviewed by me, Image(s) reviewed by me Problem List/Assessment/Plan Problem List/Assessment/Plan # Acute complicated UTI -IV ceftriaxone 1 g daily -urinalysis: UTI -urine bacterial culture ordered # Intractable shoulder pain # Chronic lower back pain - shoulder x-ray NO ACUTE FRACTURE OR DISLOCATION. - [place] 5 Q 4 p.r.n. # AFib with RVR with secondary hypercoagulable state (ChadVasc 6) # Moderate tricuspid regurgitation. - Echo showed Biatrial enlargement. Aortic root enlargement with concentric LVH. RV enlargement. - metoprolol succinate 55 mg p.o. b.i.d. # Thrombocytopenia - Lovenox held - monitor CBC - stopped methotrexate # Chronic hepatocellular disease. # transaminitis - monitor labs -comprehensive hepatitis panel ordered # Hypertensive heart disease with possible chronic diastolic heart failure # Dyslipidemia - echo showed EF of 55-60% with normal RV function. - Lisinopril 5 mg - atorvastatin 80 # Prediabetic, HbA1c 5.9 - counseled patient regarding weight loss, lifestyle modification and physical exercise # BPH - Tamsulosin 0.4 mg q.p.m. Diet: Cardiac PPI prophylaxis: Pantoprazole DVT prophylaxis: Lovenox held due to low platelets Plan discussed with Dr. Lamar Plan discussed with: Patient My Orders My Orders Orders - GÓMEZ DUBOSE RESIDENT Procedure Category Date Status Time Comprehensive LAB 10/18/25 In Process Hepatitis Panel 09:47 Free T4 (Free LAB 10/18/25 In Process Thyroxine) 15:57 Date of Service: Oct 18, 2025 Billing Provider: JARROD CRUZ MD Common Visit Codes: [id number] INP/OBS CARE(HIGH) GÓMEZ DUBOSE RESIDENT Oct 18, 2025 18:49
[2025-10-18 21:32] LABS: Hemoglobin 8.8 g/dL (13.5-17.5); Nucleated Red Blood Cells % 0.1 %
[2025-10-18 21:33] LABS: Hematocrit 25.7 % (41.0-53.0); Mean Corpuscular Hemoglobin 35.3 pg (28.0-32.0); Mean Corpuscular Volume 103.2 fL (80.0-100.0)
[2025-10-18 21:37] LABS: Potassium 4.1 mmol/L (3.5-5.1); Sodium 141 mmol/L (136-145)
[2025-10-18 21:38] LABS: Anion Gap 10 (5-15); Carbon Dioxide 23 mmol/L (20-31)
[2025-10-18 21:39] LABS: Calcium 9.1 mg/dL (8.7-10.4)
[2025-10-18 21:43] LABS: BUN/Creatinine Ratio 29.8 (10.0-20.0)
[2025-10-18 21:44] LABS: Blood Urea Nitrogen 39 mg/dL (9-23); Chloride 108 mmol/L (98-107); Glucose 111 mg/dL (74-106)
[2025-10-19] VITALS (8 sets, daily range): BP systolic 90–110; BP diastolic 51–66; PULSE 61–106; RESP 15–18; TEMP 97.7–98.9; O2SAT 90–100
--- NOTE | 2025-10-19 08:09 | DVHPNRES ---
Progress Note Date Seen: Oct 19, 2025 Resident Creating Document: ÓSCAR DONATO RESIDENT Medical Necessity Reason Pt with a Central, PICC or Fol: No Subjective Review of Systems Mr. Garth Phillip, an 80 year old male with past medical history of AFib on rivaroxaban, dementia , hypertension, questionable CVA, UTI two years ago, PAD. 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 The son was accompanying the patient. The patient denies any chest pain, shortness of breath, fever, urinary symptoms frequency, urgency, burning sensation or any other complaints. The shoulder pain is new onset since last three days. Past medical history: As above Past surgical history: As above Allergies: None Smoking: Never Alcohol: Quit many years ago. Previously heavy drinker Drugs: Denied Lives with: Son Home medications: Apixaban, atorvastatin, finasteride, folic acid, latanoprost, lisinopril, metoprolol succinate, tamsulosin Code status: Full code, patient wants to donate all his organ. 10/17/25: Patient seen at bedside. Patient is A&O x1. Has dementia. Very poor historian. Patient complains of 5/10 shoulder pain and lower back pain. Patient is stopped on Lovenox as his platelets are dropping. Monitor CBC. Patient has a UTI urinalysis positive for UTI. Called son, did not answer. 10/18/25- patient was seen at bedside today. Patient looked delirious today. He has no new complaints. Comprehensive hepatitis panel was ordered for the patient. Platelet count today was 41, methotrexate was stopped. Lovenox is being held due to decreasing platelet count, risk of stroke and risk versus benefits have been discussed with patient and daughter, and they verbalized understanding of the same. Free T4 level was ordered for the patient. Blood pressure dropped to eighty by 81/56, for which he was given 500 cc bolus of NS. 10/19/2025: Patient seen at bedside. Patient is still confused in no x1. Blood pressure continuously monitored. Patient states he felt dizzy overnight. Had 1 bowel movement yesterday, stop methotrexate due to low platelet count. Platelet count monitored. IV ceftriaxone changed to Keflex 500 b.i.d. p.o.. Discontinued lisinopril. Objective vital signs Vital Sign Date Time Temp Pulse Resp B/P (MAP) Pulse Ox O2 Delivery O2 Flow Rate FiO2 10/19/25 05:00 98.1 83 16 96/66 (76) 99 98.1 10/18/25 20:00 Room Air* 0 21 Total Intake and Output 10/18/25 10/18/25 10/19/25 15:00 23:00 07:00 Intake Total 50 ml 1185 ml 650 ml Output Total 600 ml Balance 50 ml 1185 ml 50 ml medications Current Medications Medications Dose Ordered Sig/Aleksey Route Start Time Stop Time Status Last Admin Dose Admin Acetaminophen/ Hydrocodone Bitart 1 tab Q4HPRN PRN PO 10/16/25 21:30 Ceftriaxone Sodium 50 ml @ 100 mls/hr DAILY@09 IV 10/17/25 09:00 10/18/25 10:18 100 MLS/HR Finasteride 5 mg DAILY PO 10/17/25 10:00 10/18/25 10:19 5 MG Lisinopril 5 mg DAILY PO 10/17/25 10:00 10/18/25 10:19 5 MG Tamsulosin HCl 0.4 mg QPM PO 10/17/25 18:00 10/18/25 18:06 0.4 MG Atorvastatin Calcium 80 mg HS PO 10/17/25 22:00 10/18/25 22:20 80 MG Folic Acid 1 mg DAILY PO 10/17/25 10:00 10/18/25 10:18 1 MG Metoprolol Succinate 25 mg BID PO 10/17/25 10:00 10/17/25 21:24 25 MG Pantoprazole Sodium 40 mg DAILY@0600 PO 10/17/25 06:00 10/19/25 05:15 40 MG Examination General: Patient following commands. A and O x 1 HEENT: Normocephalic, atraumatic, moist mucous membranes Respiratory/pulmonary: Clear lungs bilaterally, no associated crackles or wheezes. Cardiovascular: Normal heart sounds S1 and S2 with no associated murmurs Abdomen: Abdomen nondistended, there is no pain to palpation in any of the abdominal quadrants, no palpable masses. Extremities: There is no peripheral edema present at the lower extremities. Peripheral Pulses: 3+ Radial (R). 3+ Radial (L). 3+ Dorsalis pedis (R). 3+ Dorsalis pedis(L) Skin: No rashes or pruritus, there is no sacral edema present at this time. Neurological: Intact cranial nerves with no focal neurologic deficits laboratory and microbiology Laboratory Tests 10/18/25 21:14 Test 10/18/25 21:14 Range/Units Serum Glucose 111 H 74-106 mg/dL Microbiology Date/Time Source Procedure Growth Status 10/18/25 21:15 Nose MRSA Screen - Final Complete Problem List/Assessment/Plan Problem List/Assessment/Plan # Acute complicated UTI -Keflex 500 b.i.d. -urinalysis: UTI -urine bacterial culture negative. # Intractable shoulder pain # Chronic lower back pain - shoulder x-ray NO ACUTE FRACTURE OR DISLOCATION. - [place] 5 Q 4 p.r.n. # AFib with RVR with secondary hypercoagulable state (ChadVasc 6) # Moderate tricuspid regurgitation. - Echo showed Biatrial enlargement. Aortic root enlargement with concentric LVH. RV enlargement. - metoprolol succinate 55 mg p.o. b.i.d. # Thrombocytopenia - Lovenox held - monitor CBC - stopped methotrexate - transfuse platelets if less than 20 # Chronic hepatocellular disease. # transaminitis - monitor labs -comprehensive hepatitis panel ordered # Hypertensive heart disease with possible chronic diastolic heart failure # Dyslipidemia - echo showed EF of 55-60% with normal RV function. - Lisinopril 5 mg - atorvastatin 80 # Prediabetic, HbA1c 5.9 - counseled patient regarding weight loss, lifestyle modification and physical exercise # BPH - Tamsulosin 0.4 mg q.p.m. Diet: Cardiac PPI prophylaxis: Pantoprazole DVT prophylaxis: Lovenox held due to low platelets Plan discussed with Dr. Lamar Plan discussed with: Patient My Orders My Orders Orders - ÓSCAR DONATO Procedure Category Date Status Time Complete Blood Count LAB 10/19/25 Verified 08:06 Comprehensive LAB 10/19/25 Verified Metabolic Panel 08:06 Date of Service: Oct 19, 2025 Billing Provider: JARROD CRUZ MD Common Visit Codes: [id number] INP/OBS CARE(HIGH) ÓSCAR DONATO Oct 19, 2025 08:09
[2025-10-19 10:51] LABS: Hemoglobin 9.5 g/dL (13.5-17.5)
[2025-10-19 10:53] LABS: Hematocrit 27.8 % (41.0-53.0); Mean Corpuscular Hemoglobin 35.6 pg (28.0-32.0); Mean Corpuscular Volume 104.0 fL (80.0-100.0); Nucleated Red Blood Cells % 0.1 %
[2025-10-19 11:09] LABS: Alkaline Phosphatase 86 U/L (46-116); Anion Gap 12 (5-15); BUN/Creatinine Ratio 28.8 (10.0-20.0); Calcium 9.7 mg/dL (8.7-10.4); Carbon Dioxide 24 mmol/L (20-31); Potassium 4.5 mmol/L (3.5-5.1); Sodium 144 mmol/L (136-145); Total Protein 5.8 g/dL (5.7-8.2)
[2025-10-19 11:10] LABS: Albumin 3.3 g/dL (3.2-4.8)
[2025-10-19 11:11] LABS: Alanine Aminotransferase 88 U/L (7-40); Bilirubin, Total 1.7 mg/dL (0.2-1.0); Blood Urea Nitrogen 38 mg/dL (9-23); Chloride 108 mmol/L (98-107); Glucose 131 mg/dL (74-106)
--- NOTE | 2025-10-19 13:29 | ECG ---
[facility] Test Date: 2025-10-19 Test Time: 04:26:33 Pat Name: ISIS BARRETT Department: Room: 0245T A Gender: M [employer]: : 1945 Requested By: ÓSCAR MEDINA Order Number: [id number] Reading MD: Shaheed Umana Measurements Intervals [place] Rate: 79 P: 0 PA: 0 QRS: -43 QRSD: 128 T: 38 QT: 396 QTc: 455 Interpretive Statements Atrial fibrillation Ventricular premature complex RBBB and LAFB Electronically Signed On 10-19-2025 14:44:00 PST by Shaheed Umana Please click the below link to view image of tracing.
[2025-10-19] MEDS: CEPHALEXIN 250 MG CAP PO SCH (21:53)
[2025-10-20] VITALS (9 sets, daily range): BP systolic 87–113; BP diastolic 46–70; PULSE 61–75; RESP 15–17; TEMP 97.8–98.8; O2SAT 96–100
[2025-10-20 06:55] LABS: Potassium 4.1 mmol/L (3.5-5.1); Sodium 142 mmol/L (136-145)
[2025-10-20 06:56] LABS: Anion Gap 9 (5-15); Calcium 9.1 mg/dL (8.7-10.4); Carbon Dioxide 25 mmol/L (20-31)
[2025-10-20 06:57] LABS: Chloride 108 mmol/L (98-107); Mean Corpuscular Hemoglobin 35.6 pg (28.0-32.0)
[2025-10-20 06:59] LABS: Hematocrit 23.7 % (41.0-53.0); Hemoglobin 8.3 g/dL (13.5-17.5); Mean Corpuscular Volume 101.9 fL (80.0-100.0); Nucleated Red Blood Cells % 0.7 %
[2025-10-20 07:01] LABS: BUN/Creatinine Ratio 25.0 (10.0-20.0); Glucose 85 mg/dL (74-106)
[2025-10-20 07:02] LABS: Blood Urea Nitrogen 35 mg/dL (9-23)
[2025-10-20 08:11] LABS: Macrocytosis Slight
[2025-10-20 09:11] LABS: Alkaline Phosphatase 79.0 U/L (46-116)
[2025-10-20 09:18] LABS: Alanine Aminotransferase 64.0 U/L (7-40); Albumin 3.0 g/dL (3.2-4.8); Bilirubin, Direct 0.6 mg/dL (<0.3); Bilirubin, Total 1.3 mg/dL (0.2-1.0); Total Protein 5.4 g/dL (5.7-8.2)
[2025-10-20] MEDS ORDERED: FOLIC ACID 1 MG TAB PO ONE (10:45)
[2025-10-20] MEDS: FOLIC ACID 1 MG in D5W 5% 50 ML INJ ONE (10:45)
[2025-10-20 11:58] LABS: Hepatitis A Total Antibody Positive (Negative); Hepatitis B Surface Antigen Negative (Negative); Hepatitis C Antibody Negative (Negative)
--- NOTE | 2025-10-20 16:47 | DVHPNRES ---
Progress Note Date Seen: Oct 20, 2025 Resident Creating Document: ÓSCAR DONATO RESIDENT Medical Necessity Reason Pt with a Central, PICC or Fol: No Subjective Review of Systems Mr. Garth Phillip, an 80 year old male with past medical history of AFib on rivaroxaban, dementia , hypertension, questionable CVA, UTI two years ago, PAD. 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 The son was accompanying the patient. The patient denies any chest pain, shortness of breath, fever, urinary symptoms frequency, urgency, burning sensation or any other complaints. The shoulder pain is new onset since last three days. Past medical history: As above Past surgical history: As above Allergies: None Smoking: Never Alcohol: Quit many years ago. Previously heavy drinker Drugs: Denied Lives with: Son Home medications: Apixaban, atorvastatin, finasteride, folic acid, latanoprost, lisinopril, metoprolol succinate, tamsulosin Code status: Full code, patient wants to donate all his organ. 10/17/25: Patient seen at bedside. Patient is A&O x1. Has dementia. Very poor historian. Patient complains of 5/10 shoulder pain and lower back pain. Patient is stopped on Lovenox as his platelets are dropping. Monitor CBC. Patient has a UTI urinalysis positive for UTI. Called son, did not answer. 10/18/25- patient was seen at bedside today. Patient looked delirious today. He has no new complaints. Comprehensive hepatitis panel was ordered for the patient. Platelet count today was 41, methotrexate was stopped. Lovenox is being held due to decreasing platelet count, risk of stroke and risk versus benefits have been discussed with patient and daughter, and they verbalized understanding of the same. Free T4 level was ordered for the patient. Blood pressure dropped to eighty by 81/56, for which he was given 500 cc bolus of NS. 10/19/2025: Patient seen at bedside. Patient is still confused in no x1. Blood pressure continuously monitored. Patient states he felt dizzy overnight. Had 1 bowel movement yesterday, stop methotrexate due to low platelet count. Platelet count monitored. IV ceftriaxone changed to Keflex 500 b.i.d. p.o.. Discontinued lisinopril. 10/20/2025: Patient seen at bedside. Patient still A&O x2. Patient's platelet count WBC still dropping. Acid level was checked and was normal, monitor CBC. Patient has no acute complaints. Tried calling son, did not answer. Objective vital signs Vital Sign Date Time Temp Pulse Resp B/P (MAP) Pulse Ox O2 Delivery O2 Flow Rate FiO2 10/20/25 13:24 97.8 61 16 111/61 (78) 96 97.8 10/20/25 08:00 Room Air* 0 21 Total Intake and Output 10/19/25 10/19/25 10/20/25 15:00 23:00 07:00 Intake Total 1125 ml 650 ml Output Total 560 ml 1150 ml Balance 565 ml -500 ml medications Current Medications Medications Dose Ordered Sig/Aleksey Route Start Time Stop Time Status Last Admin Dose Admin Acetaminophen/ Hydrocodone Bitart 1 tab Q4HPRN PRN PO 10/16/25 21:30 Finasteride 5 mg DAILY PO 10/17/25 10:00 10/20/25 10:27 5 MG Tamsulosin HCl 0.4 mg QPM PO 10/17/25 18:00 10/19/25 17:49 0.4 MG Atorvastatin Calcium 80 mg HS PO 10/17/25 22:00 10/19/25 21:53 80 MG Metoprolol Succinate 25 mg BID PO 10/17/25 10:00 10/20/25 10:00 25 MG Pantoprazole Sodium 40 mg DAILY@0600 PO 10/17/25 06:00 10/20/25 05:02 40 MG Cephalexin 500 mg BID PO 10/19/25 22:00 10/20/25 10:27 500 MG Folic Acid 1 mg DAILY PO 10/21/25 10:00 Examination General: Patient following commands. A and O x 2 HEENT: Normocephalic, atraumatic, moist mucous membranes Respiratory/pulmonary: Clear lungs bilaterally, no associated crackles or wheezes. Cardiovascular: Normal heart sounds S1 and S2 with no associated murmurs Abdomen: Abdomen nondistended, there is no pain to palpation in any of the abdominal quadrants, no palpable masses. Extremities: There is no peripheral edema present at the lower extremities. Peripheral Pulses: 3+ Radial (R). 3+ Radial (L). 3+ Dorsalis pedis (R). 3+ Dorsalis pedis(L) Skin: No rashes or pruritus, there is no sacral edema present at this time. Neurological: Intact cranial nerves with no focal neurologic deficits laboratory and microbiology Laboratory Tests 10/20/25 06:07 Test 10/20/25 06:07 Range/Units Serum Glucose 85 74-106 mg/dL Microbiology Date/Time Source Procedure Growth Status 10/18/25 21:15 Nose MRSA Screen - Final Complete 10/18/25 00:52 Voided Urine Urine Culture - Preliminary Presumptive Sophia albicans Resulted Problem List/Assessment/Plan Problem List/Assessment/Plan # Acute complicated UTI -Keflex 500 b.i.d. -urinalysis: UTI -urine bacterial culture negative. # Intractable shoulder pain # Chronic lower back pain - shoulder x-ray NO ACUTE FRACTURE OR DISLOCATION. - [place] 5 Q 4 p.r.n. # AFib with RVR with secondary hypercoagulable state (ChadVasc 6) # Moderate tricuspid regurgitation. - Echo showed Biatrial enlargement. Aortic root enlargement with concentric LVH. RV enlargement. - metoprolol succinate 55 mg p.o. b.i.d. # Thrombocytopenia - Lovenox held - monitor CBC - stopped methotrexate - transfuse platelets if less than 20 # Chronic hepatocellular disease. # transaminitis - monitor labs -comprehensive hepatitis panel ordered # Hypertensive heart disease with possible chronic diastolic heart failure # Dyslipidemia - echo showed EF of 55-60% with normal RV function. - Lisinopril 5 mg - atorvastatin 80 # Prediabetic, HbA1c 5.9 - counseled patient regarding weight loss, lifestyle modification and physical exercise # BPH - Tamsulosin 0.4 mg q.p.m. Diet: Cardiac PPI prophylaxis: Pantoprazole DVT prophylaxis: Lovenox held due to low platelets Plan discussed with Dr. Sweeney Plan discussed with: Patient My Orders My Orders Orders - ÓSCAR DONATO Procedure Category Date Status Time Cephalexin Capsule PHA 10/19/25 In Process (Keflex Capsule) 22:00 Date of Service: Oct 20, 2025 Billing Provider: ARIN SWEENEY MD Common Visit Codes: [id number] INP/OBS CARE(HIGH) ÓSCAR DONATO Oct 20, 2025 16:47 ARIN SWEENEY MD Oct 20, 2025 17:44
[2025-10-21] VITALS (8 sets, daily range): BP systolic 100–120; BP diastolic 57–74; PULSE 60–78; RESP 16–17; TEMP 97.2–98.5; O2SAT 93–100
[2025-10-21 05:57] LABS: Anion Gap 8 (5-15); Carbon Dioxide 26 mmol/L (20-31); Potassium 4.5 mmol/L (3.5-5.1); Sodium 141 mmol/L (136-145)
[2025-10-21 05:58] LABS: Calcium 9.1 mg/dL (8.7-10.4)
[2025-10-21 06:03] LABS: Glucose 103 mg/dL (74-106)
[2025-10-21 06:09] LABS: Blood Urea Nitrogen 31 mg/dL (9-23); Chloride 107 mmol/L (98-107)
[2025-10-21 06:20] LABS: BUN/Creatinine Ratio 27.2 (10.0-20.0)
[2025-10-21 07:31] LABS: Hemoglobin 8.7 g/dL (13.5-17.5)
[2025-10-21 07:33] LABS: Hematocrit 24.7 % (41.0-53.0); Mean Corpuscular Hemoglobin 36.1 pg (28.0-32.0); Mean Corpuscular Volume 102.4 fL (80.0-100.0); Nucleated Red Blood Cells % 1.5 %
[2025-10-21 08:47] LABS: Anisocytosis Slight
--- NOTE | 2025-10-21 09:18 | DVH ---
Technique: Real-time ultrasound imaging of the spleen was performed with grayscale and color Doppler. Indication: spleenomegaly Comparison: US LIVER on DOS: 10/16/25 Findings: Spleen measures 8.3 x 2.9 x 3.5 cm, volume 44 cc. Accessory splenule measuring 1.7 cm. Impression: Spleen size within normal limits.
[2025-10-21] MEDS: FOLIC ACID 1 MG TAB PO SCH (10:02)
[2025-10-21 10:08] LABS: Alkaline Phosphatase 81.0 U/L (46-116)
[2025-10-21 10:09] LABS: Bilirubin, Total 1.1 mg/dL (0.2-1.0)
[2025-10-21 10:16] LABS: Alanine Aminotransferase 57.0 U/L (7-40); Albumin 3.2 g/dL (3.2-4.8); Bilirubin, Direct 0.5 mg/dL (<0.3); Total Protein 5.6 g/dL (5.7-8.2)
[2025-10-21 10:31] LABS: INR 1.11 (0.9-1.15); Partial Thromboplastin Time 25.4 SEC (24.5-34.5); Prothrombin Time 11.6 sec (9.3-11.8); Triglycerides 65 mg/dL (< 150)
[2025-10-21 10:33] LABS: Cholesterol 94 mg/dL (< 200); HDL Cholesterol 47 mg/dL (40-59)
--- NOTE | 2025-10-21 11:59 | DVH ---
Indication: r/o abdomen mass Technique: CT axial images of the chest, abdomen and pelvis are obtained without contrast. Coronal and sagittal reformats were obtained. Radiation Dose Information: CTDI volume is 9.86 mGy. Dose-length product is 691.28 mGy*cm Comparison: None FINDINGS: There is limited interpretation of the chest, abdomen and pelvis without administration of intravenous contrast. The trachea is patent. No pneumothorax. Right upper lobe tree-in-bud nodularity/ nodularity measuring up to 6 mm. No significant pleural effusion. Cardiomegaly. Coronary artery calcification disease. Aortic atherosclerotic disease. No supraclavicular or axillary lymphadenopathy. Adrenal glands unremarkable in shape. Splenic capsular calcifications. Pancreas unremarkable in shape. Liver unremarkable in shape. No hydronephrosis. Nonobstructing right renal calculi up to 3 mm. Right renal cysts measuring 1.5 cm. Marked gastric distention. Small bowel loops normal in caliber. Moderate volume stool in the colon. Postsurgical changes near the cecum. Appendix appears to be removed. Abdominal aortic atherosclerotic disease. There is diffuse irregular thickening of the bladder wall up to 13 mm which is most pronounced along the bladder dome region and posterior Bladder. Prostate measures 4.6 cm transversely. No free pelvic fluid. No inguinal lymphadenopathy. [id number] bilateral sacroiliac degenerative joint disease. Moderate thoracolumbar degenerative disc disease. Left shoulder arthroplasty. IMPRESSION: Limited evaluation without contrast. Marked gastric distention. Correlate to exclude gastroparesis, gastric outlet obstruction and other etiologies. Recommend GI consultation. Right upper lobe with nodularity measuring up to 6 mm with associated tree-in-bud nodularity, possibly secondary to bronchiolitis, atypical infection. Recommend follow-up per Fleischner society criteria for the nodules up to 6 mm. Irregular thickening of the bladder wall to 13 mm most pronounced along the posterior bladder and bladder dome region. Recommend urology consultation for cystoscopy to exclude any type of underlying bladder mass/ neoplasm with other considerations including sequela of neurogenic bladder, cystitis, outlet obstruction. Cardiomegaly. Coronary artery calcification disease. Nonobstructing right renal calculi. Atherosclerotic disease.
--- NOTE | 2025-10-21 15:16 | DVHPNRES ---
Progress Note Date Seen: Oct 21, 2025 Resident Creating Document: ÓSCAR DONATO RESIDENT Medical Necessity Reason Pt with a Central, PICC or Fol: No Subjective Review of Systems Mr. Garth Phillip, an 80 year old male with past medical history of AFib on rivaroxaban, dementia , hypertension, questionable CVA, UTI two years ago, PAD. with history of [employer]MENT [employer] at [facility], stomach surgery for unknown indications at [facility], presented to the ER with the complaints of left-sided CVA shoulder pain and lower back pain. The son was accompanying the patient. The patient denies any chest pain, shortness of breath, fever, urinary symptoms frequency, urgency, burning sensation or any other complaints. The shoulder pain is new onset since last three days. Past medical history: As above Past surgical history: As above Allergies: None Smoking: Never Alcohol: Quit many years ago. Previously heavy drinker Drugs: Denied Lives with: Son Home medications: Apixaban, atorvastatin, finasteride, folic acid, latanoprost, lisinopril, metoprolol succinate, tamsulosin Code status: Full code, patient wants to donate all his organ. 10/17/25: Patient seen at bedside. Patient is A&O x1. Has dementia. Very poor historian. Patient complains of 5/10 shoulder pain and lower back pain. Patient is stopped on Lovenox as his platelets are dropping. Monitor CBC. Patient has a UTI urinalysis positive for UTI. Called son, did not answer. 10/18/25- patient was seen at bedside today. Patient looked delirious today. He has no new complaints. Comprehensive hepatitis panel was ordered for the patient. Platelet count today was 41, methotrexate was stopped. Lovenox is being held due to decreasing platelet count, risk of stroke and risk versus benefits have been discussed with patient and daughter, and they verbalized understanding of the same. Free T4 level was ordered for the patient. Blood pressure dropped to eighty by 81/56, for which he was given 500 cc bolus of NS. 10/19/2025: Patient seen at bedside. Patient is still confused in no x1. Blood pressure continuously monitored. Patient states he felt dizzy overnight. Had 1 bowel movement yesterday, stop methotrexate due to low platelet count. Platelet count monitored. IV ceftriaxone changed to Keflex 500 b.i.d. p.o.. Discontinued lisinopril. 10/20/2025: Patient seen at bedside. Patient still A&O x2. Patient's platelet count WBC still dropping. level was checked and was normal, monitor CBC. Patient has no acute complaints. Tried calling son, did not answer. 10/21/25: Patient seen at bedside. Patient still A&O x2. Patient's platelet count still dropping today 23. Patient has no new acute complaints. Consulted IR for bone marrow biopsy. Consulted Heme-Onc, stool occult blood. CT abdomen ordered. Objective vital signs Vital Sign Date Time Temp Pulse Resp B/P (MAP) Pulse Ox O2 Delivery O2 Flow Rate FiO2 10/21/25 10:05 84 105/63 10/21/25 09:00 97.8 16 98 97.8 10/21/25 08:00 Room Air* 0 21 Total Intake and Output 10/20/25 10/20/25 10/21/25 15:00 23:00 07:00 Intake Total 1000 ml 620 ml Output Total 300 ml 660 ml Balance 700 ml -40 ml medications Current Medications Medications Dose Ordered Sig/Aleksey Route Start Time Stop Time Status Last Admin Dose Admin Acetaminophen/ Hydrocodone Bitart 1 tab Q4HPRN PRN PO 10/16/25 21:30 Finasteride 5 mg DAILY PO 10/17/25 10:00 10/21/25 10:02 5 MG Tamsulosin HCl 0.4 mg QPM PO 10/17/25 18:00 10/20/25 18:32 0.4 MG Atorvastatin Calcium 80 mg HS PO 10/17/25 22:00 10/20/25 21:13 80 MG Metoprolol Succinate 25 mg BID PO 10/17/25 10:00 10/21/25 10:05 25 MG Pantoprazole Sodium 40 mg DAILY@0600 PO 10/17/25 06:00 10/21/25 06:00 40 MG Folic Acid 1 mg DAILY PO 10/21/25 10:00 10/21/25 10:02 1 MG Examination General: Patient following commands. A and O x 2 HEENT: Normocephalic, atraumatic, moist mucous membranes Respiratory/pulmonary: Clear lungs bilaterally, no associated crackles or wheezes. Cardiovascular: Normal heart sounds S1 and S2 with no associated murmurs Abdomen: Abdomen nondistended, there is no pain to palpation in any of the abdominal quadrants, no palpable masses. Extremities: There is no peripheral edema present at the lower extremities. Peripheral Pulses: 3+ Radial (R). 3+ Radial (L). 3+ Dorsalis pedis (R). 3+ Dorsalis pedis(L) Skin: No rashes or pruritus, there is no sacral edema present at this time. Neurological: Intact cranial nerves with no focal neurologic deficits laboratory and microbiology Laboratory Tests 10/21/25 06:40 10/21/25 05:02 Test 10/21/25 05:02 Range/Units Serum Glucose 103 74-106 mg/dL Microbiology Date/Time Source Procedure Growth Status 10/18/25 21:15 Nose MRSA Screen - Final Complete 10/18/25 00:52 Voided Urine Urine Culture - Final Presumptive Sophia albicans Complete Problem List/Assessment/Plan Problem List/Assessment/Plan # Acute complicated UTI -Keflex 500 b.i.d. -urinalysis: UTI -urine bacterial culture negative. # Intractable shoulder pain # Chronic lower back pain - shoulder x-ray NO ACUTE FRACTURE OR DISLOCATION. - Keymar 5 Q 4 p.r.n. # AFib with RVR with secondary hypercoagulable state (ChadVasc 6) # Moderate tricuspid regurgitation. - Echo showed Biatrial enlargement. Aortic root enlargement with concentric LVH. RV enlargement. - metoprolol succinate 55 mg p.o. b.i.d. # PANCYTOPENIA # Thrombocytopenia - Lovenox held - monitor CBC - stopped methotrexate - HEME-ONC CONSULTED - CT abdomen/ chest showed Irregular thickening of the bladder wall to 13 mm most pronounced along the posterior bladder and bladder dome region. Recommend urology consultation for cystoscopy to exclude any type of underlying bladder mass/ neoplasm with other considerations including sequela of neurogenic bladder, cystitis, outlet obstruction. Cardiomegaly. Coronary artery calcification disease. Nonobstructing right renal calculi. - Radiology consulted for bone marrow biopsy - transfuse platelets if less than 10 - 4 t score less than 5% so low probability of HIT # Chronic hepatocellular disease. # transaminitis - monitor labs -comprehensive hepatitis panel , showed hepatitis A antibody positive # Hypertensive heart disease with possible chronic diastolic heart failure # Dyslipidemia - echo showed EF of 55-60% with normal RV function. - Lisinopril 5 mg - atorvastatin 80 # 6 mm right lung nodule - follow-up outpatient # Prediabetic, HbA1c 5.9 - counseled patient regarding weight loss, lifestyle modification and physical exercise # BPH - Tamsulosin 0.4 mg q.p.m. Diet: Cardiac PPI prophylaxis: Pantoprazole DVT prophylaxis: Lovenox held due to low platelets Plan discussed with Dr. Sweeney Plan discussed with: Patient My Orders My Orders Orders - ÓSCAR DONATO RESIDENT Procedure Category Date Status Time * Hematology/Oncology CONS 10/21/25 Transmitted Consult 08:27 Spleen US 10/21/25 Resulted 08:27 Stool Occult Blood LAB 10/21/25 Logged 10:14 Chst Ab Pel Wo Con-No CT 10/21/25 Resulted Iv/Oral 10:14 * Radiologist Consult CONS 10/21/25 Transmitted 14:51 Dietary Evaluation Review Comments: 1) Continue liberalizing diet 2) Monitor PO intake, lab values, weight trend, and I/O Expected Outcomes/Goals: Lab values to improve FU 3-5 days Date of Service: Oct 21, 2025 Billing Provider: ARIN SWEENEY MD Common Visit Codes: [id number] INP/OBS CARE(HIGH) ÓSCAR DONATO Oct 21, 2025 15:16 ARIN SWEENEY MD Oct 21, 2025 22:44
[2025-10-22 01:00] VITALS: BP 115/67; PULSE 82; RESP 17; TEMP 98; O2SAT 94
[2025-10-22 04:42] VITALS: BP 128/64; PULSE 74; RESP 17; TEMP 98; O2SAT 99
[2025-10-22 08:00] VITALS: PULSE 66; RESP 16
[2025-10-22 08:08] LABS: Hematocrit 28.0 % (41.0-53.0); Hemoglobin 9.6 g/dL (13.5-17.5); Mean Corpuscular Hemoglobin 35.7 pg (28.0-32.0); Mean Corpuscular Volume 103.9 fL (80.0-100.0); Nucleated Red Blood Cells % 2.3 %
[2025-10-22 08:31] LABS: Calcium 10.0 mg/dL (8.7-10.4); Chloride 106 mmol/L (98-107); Potassium 4.3 mmol/L (3.5-5.1); Sodium 141 mmol/L (136-145)
[2025-10-22 08:32] LABS: Anion Gap 8 (5-15); Carbon Dioxide 27 mmol/L (20-31)
[2025-10-22 08:38] LABS: BUN/Creatinine Ratio 20.3 (10.0-20.0); Glucose 93 mg/dL (74-106)
[2025-10-22 08:39] LABS: Blood Urea Nitrogen 29 mg/dL (9-23)
[2025-10-22 08:40] VITALS: BP 103/59; PULSE 65; RESP 14; TEMP 98.8; O2SAT 98
--- NOTE | 2025-10-22 09:53 | DVH ---
CT PELVIS WO CONTRAST, HISTORY: BONE BIOPSY COMPARISON: None PROCEDURE: Informed consent and time-out was performed before the procedure. FINDINGS: IMPRESSION: Patient refused procedure and said does not want any needles to stick him. Procedure was terminated.
[2025-10-22] MEDS: methylPREDNISolone SOD SUCC 40 MG/ML VL IV SCH (12:02)
[2025-10-22] MEDS: fentaNYL CITRATE 100 MCG/2 ML VL IV ONE (12:03)
[2025-10-22] MEDS: LIDOCAINE 2%HCL (LOCAL ANESTH.) INJ 10ml MDV ONE (12:05)
[2025-10-22] MEDS: MIDAZOLAM HCL 2MG/2ML 2ml VIAL (1mg/ml) IV ONE (12:05)
[2025-10-22 12:08] LABS: Anti-Nuclear Antibody Direct Positive (Negative)
[2025-10-22] MEDS: methylPREDNISolone SOD SUCC 125 MG/2 ML VL IV ONE (12:12)
[2025-10-22 12:27] LABS: Albumin 3.5 g/dL (3.2-4.8); Alkaline Phosphatase 104.0 U/L (46-116); Total Protein 6.3 g/dL (5.7-8.2)
[2025-10-22 12:28] LABS: Alanine Aminotransferase 56.0 U/L (7-40); Bilirubin, Direct 0.5 mg/dL (<0.3); Bilirubin, Total 1.2 mg/dL (0.2-1.0)
[2025-10-22 12:32] VITALS: BP 130/71; PULSE 73; RESP 14; TEMP 98.5; O2SAT 100
[2025-10-22 14:07] LABS: Anti-dsDNA Antibody <1 IU/mL (0-9); Sjogren's Anti-SS-A Antibody >8.0 AI (0.0-0.9); Sjogren's Anti-SS-B Antibody <0.2 AI (0.0-0.9)
[2025-10-22 16:42] VITALS: BP 103/71; PULSE 75; RESP 14; TEMP 98.7; O2SAT 99
--- NOTE | 2025-10-22 18:29 | DVHDSRES ---
Discharge Summary Date of Admission Resident Creating Document: ÓSCAR DONATO Oct 16, 2025 at 20:48 Date of Discharge: Oct 22, 2025 Admitting Diagnosis Acute complicated UTI Labs/Diagnostic Data: Laboratory Results Test 10/22/25 07:54 10/21/25 09:44 10/21/25 06:40 10/21/25 05:02 White Blood Count 2.3 10^3/uL (4.4-10.8) Red Blood Count 2.70 10^6/uL (4.5-5.90) Hemoglobin 9.6 g/dL (13.5-17.5) Hematocrit 28.0 % (41.0-53.0) Mean Corpuscular Volume 103.9 fL (80.0-100.0) Mean Corpuscular Hemoglobin 35.7 pg (28.0-32.0) Mean Corpuscular Hemoglobin Concent 34.3 g/dL (32.0-36.0) Red Cell Distribution Width 15.9 % (11.8-14.3) Platelet Count 15 10^3/uL (140-450) Mean Platelet Volume 8.8 fL (6.9-10.8) Neutrophils (%) (Auto) 33.9 % (37.0-80.0) Lymphocytes (%) (Auto) 44.4 % (10.0-50.0) Monocytes (%) (Auto) 13.1 % (0.0-12.0) Eosinophils (%) (Auto) 7.3 % (0.0-7.0) Basophils (%) (Auto) 1.3 % (0.0-2.0) Neutrophils # (Auto) 0.8 10 ^3/uL (1.6-8.6) Lymphocytes # (Auto) 1.0 10 ^3/uL (0.4-5.4) Monocytes # (Auto) 0.3 10 ^3/uL (0-1.3) Eosinophils # (Auto) 0.2 10 ^3/uL (0-0.8) Basophils # (Auto) 0 10 ^3/uL (0-0.2) Nucleated Red Blood Cells 2.3 % Platelet Estimate Markedly decreased Reticulocyte Count (auto) 3.40 % (0.5-1.5) Sodium Level 141 mmol/L (136-145) Potassium Level 4.3 mmol/L (3.5-5.1) Chloride Level 106 mmol/L (98-107) Carbon Dioxide Level 27 mmol/L (20-31) Anion Gap 8 (5-15) Blood Urea Nitrogen 29 mg/dL (9-23) Creatinine 1.43 mg/dL (0.700-1.30) Glomerular Filtration Rate Calc 49 mL/min (>90) BUN/Creatinine Ratio 20.3 (10.0-20.0) Serum Glucose 93 mg/dL (74-106) Calcium Level 10.0 mg/dL (8.7-10.4) Total Bilirubin 1.2 mg/dL (0.2-1.0) Direct Bilirubin 0.5 mg/dL (<0.3) Aspartate Amino Transferase (AST) 26 U/L (13-40) Alanine Aminotransferase (ALT) 56 U/L (7-40) Alkaline Phosphatase 104 U/L (46-116) Total Protein 6.3 g/dL (5.7-8.2) Albumin 3.5 g/dL (3.2-4.8) Prothrombin Time 11.6 sec (9.3-11.8) Prothrombin Time INR 1.11 (0.9-1.15) Activated Partial Thromboplast Time 25.4 SEC (24.5-34.5) Triglycerides Level 65 mg/dL (< 150) Cholesterol Level 94 mg/dL (< 200) LDL Cholesterol 31 mg/dL (< 100) HDL Cholesterol 47 mg/dL (40-59) Anti-Nuclear Antibody Screen Positive (Negative) Anti-Nuclear Antibody Comment Comment (.) SS-A/Ro Antibody >8.0 AI (0.0-0.9) SS-B/La Antibody <0.2 AI (0.0-0.9) Sm Antibody <0.2 AI (0.0-0.9) MARBLE [place]ON Antibody 0.5 AI (0.0-0.9) Anti-Double Strand DNA Antibody <1 IU/mL (0-9) Complement C3 115 mg/dL (82-167) Complement C4 20 mg/dL (12-38) HIV (1&2) Antibody Negative (Negative) Poikilocytosis (manual) Slight Anisocytosis (manual) Slight Sabinal Cells Few Schistocytes Few Lactate Dehydrogenase 189 U/L (120-246) Test 10/20/25 13:08 10/20/25 06:07 10/18/25 18:21 10/18/25 06:09 Folic Acid 23.59 ng/mL (>5.38) Macrocytosis Slight Free Thyroxine (T4) Calculated 1.21 ng/dL (0.89-1.76) Hepatitis A Antibody Total Positive (Negative) Hepatitis B Surface Antigen Negative (Negative) Hepatitis B Surface Antibody Negative (Negative) Hepatitis B Core Total Antibody Negative (Negative) Hepatitis C Antibody Negative (Negative) Test 10/17/25 12:15 10/16/25 22:44 10/16/25 21:08 10/16/25 21:04 Ovalocytes Few Thyroid Stimulating Hormone (TSH) 0.48 uIU/mL (0.55-4.78) Influenza Type A Antigen Negative (Negative) Influenza Type B Antigen Negative (Negative) SARS-CoV-2 Antigen (Rapid) Negative (NEGATIVE) Vitamin B12 Level > 2000 pg/mL (211-911) Vitamin D 25-Hydroxy 56.5 ng/mL (30.0-100) Plasma/Serum Blood Alcohol < 3.0 mg/dL (<10) Urine Color Yellow (Yellow) Urine Clarity Turbid (Clear) Urine pH 6.5 (5.0-9.0) Urine Specific [place] 1.020 (1.001-1.035) Urine Protein Trace (Negative) Urine Ketones Negative (Negative) Urine Blood 2+ /uL (Negative) Urine Nitrite Negative (Negative) Urine Bilirubin Negative (Negative) Urine Urobilinogen Normal mg/dL (Negative) Urine Leukocyte Esterase 3+ /uL (Negative) Urine RBC 30 /hpf (0 - 3) Urine Microscopic WBC 127 /HPF (0-3) Urine Squamous Epithelial Cells Few /hpf (<5) Urine Bacteria Few /hpf (None Seen) Urine Glucose Normal mg/dL (Normal) Urine Opiates Screen Neg (NEGATIVE) Urine Fentanyl Screen Neg (NEGATIVE) Urine Barbiturates Screen Neg (NEGATIVE) Urine Phencyclidine Screen Neg (NEGATIVE) Urine Amphetamines Screen Neg (NEGATIVE) Urine Benzodiazepines Screen Neg (NEGATIVE) Urine Cocaine Screen Neg (NEGATIVE) Urine Cannabinoids Screen Neg (NEGATIVE) Test 10/16/25 18:39 10/16/25 17:48 Troponin I High Sensitivity 10 ng/L (</=54) Hemoglobin A1c 5.9 % A1C (<5.7) Magnesium Level 1.9 mg/dL (1.6-2.6) B-Type Natriuretic Peptide 151.31 pg/mL (0-100) Other Laboratory Tests 10/22/25 07:54 Brief Hx & Hospital Course: Mr. Garth Phillip, an 80 year old male with past medical history of AFib on rivaroxaban, dementia , hypertension, questionable CVA, UTI two years ago, PAD. with history of [employer] at [place], stomach surgery for unknown indications at [place], presented to the ER with the complaints of left-sided CVA shoulder pain and lower back pain. The son was accompanying the patient. The patient denies any chest pain, shortness of breath, fever, urinary symptoms frequency, urgency, burning sensation or any other complaints. The shoulder pain is new onset since last three days. Past medical history: As above Past surgical history: As above Allergies: None Smoking: Never Alcohol: Quit many years ago. Previously heavy drinker Drugs: Denied Lives with: Son Home medications: Apixaban, atorvastatin, finasteride, folic acid, latanoprost, lisinopril, metoprolol succinate, tamsulosin Code status: Full code, patient wants to donate all his organ. brief Hospital course: patient came to the hospital with chief complaints of shoulder pain, lower back pain. Patient had acute complicated UTI for which patient was given IV ceftriaxone, which was then switched to Keflex 500 b.i.d.. Urinalysis showed positive signs for UTI, urine bacterial culture came back negative. Patient had also shoulder pain, chronic lower back pain for which shoulder x-ray was done and x-ray showed no acute fracture. [place] 5 q.4 PRN was given. Patient also had AFib with RVR and moderate tricuspid regurgitation showed on echo. Aortic root enlargement with concentric LVH. Metoprolol succinate p.o. b.i.d. was given. Patient had pancytopenia, thrombocytopenia for which Lovenox was held and CBC was monitored every day. Patient's methotrexate was stopped due to thrombocytopenia, CT abdomen /chest showed Irregular thickening of the bladder wall to 13 mm most pronounced along the posterior bladder and bladder dome region. Recommend urology consultation for cystoscopy to exclude any type of underlying bladder mass/ neoplasm with other considerations including sequela of neurogenic bladder, cystitis, outlet obstruction. Cardiomegaly. Coronary artery calcification disease. Nonobstructing right renal calculi. radiology was consulted for bone marrow biopsy for which patient refused and refused IV insertion also. 4 t's score was less than 5% for hit. Spleen ultrasound was negative for any findings. patient had chronic hepatocellular disease and transaminitis for which Liver ultrasound showed Chronic hepatocellular disease. patient also had a 6 mm pulmonary nodule for which he is to follow outpatient. Patient has Dyslipidemia, hypertensive heart disease with possible chronic diastolic heart failure, echo showed EF of 55-60% with normal RV function. patient was given Lisinopril 5 mg, atorvastatin 80. Patient has BPH for which continued tamsulosin. PPI prophylaxis was given with pantoprazole, DVT prophylaxis was held due to low platelets. Patient agreed to go to hospice, family discussion in detail was done about benefits and risks of not doing bone marrow biopsy. And patient's family has agreed for hospice care. General: Patient following commands. A and O x 2 HEENT: Normocephalic, atraumatic, moist mucous membranes Respiratory/pulmonary: Clear lungs bilaterally, no associated crackles or wheezes. Cardiovascular: Normal heart sounds S1 and S2 with no associated murmurs Abdomen: Abdomen nondistended, there is no pain to palpation in any of the abdominal quadrants, no palpable masses. Extremities: There is no peripheral edema present at the lower extremities. Peripheral Pulses: 3+ Radial (R). 3+ Radial (L). 3+ Dorsalis pedis (R). 3+ Dorsalis pedis(L) Skin: No rashes or pruritus, there is no sacral edema present at this time. Neurological: Intact cranial nerves with no focal neurologic deficits Operations or Procedures ORDERING PHYSICIAN: ROMERO MARTINEZ DO PROCEDURE(s): CXRP - CHEST PORTABLE REASON: chest pain ORDER NUMBER(s): [id number], ACCESSION NUMBER(s): [id number] EXAM: XY CHEST PORTABLE HISTORY: chest pain TECHNIQUE: 1 view of the chest COMPARISON: None FINDINGS/IMPRESSION: LUNGS: No pleural effusion, consolidation, or pneumothorax. MEDIASTINUM: Unremarkable. BONES: No acute osseous abnormality. Left shoulder arthroplasty. Question sequelae of prior left lateral upper rib fractures. OTHER: None. ATED BY: DWIGHT CHAVEZ MD DICTATED DATE/TIME: 10/16/25 1856 ORDERING PHYSICIAN: JERALD PAL PROCEDURE(s): LIVUS - LIVER REASON: Abnormal LFTs ORDER NUMBER(s): [id number], ACCESSION NUMBER(s): [id number] US limited, RUQ Indication: Abnormal LFTs Comparison: None Technique: Limited ultrasound of the abdomen was performed and reviewed. Findings: The pancreas is not seen due to overlying bowel gas. Chronic hepatocellular disease. The gallbladder is not visualized which may be surgically absent. The common bile duct is not visualized. The right kidney is 9.2 cm. No evidence for hydronephrosis. Questionable echogenic area in the right chest region. IMPRESSION: Limited study with gallbladder and common bile duct not visualized. Chronic hepatocellular disease. Questionable echogenic area in the right chest region is nonspecific and may be artifactual. Correlate with dedicated chest imaging. ATED BY: VERENICE NOLASCO MD DICTATED DATE/TIME: 10/16/25 2447 ORDERING PHYSICIAN: SANYA LARA PROCEDURE(s): LSHD2 - L SHOULDER 2+ VIEW XRAY REASON: Lt shoulder pain ORDER NUMBER(s): [id number], ACCESSION NUMBER(s): [id number] XY L SHOULDER 2+ VIEW XRAY Indication: 80 years old, Male; Lt shoulder pain. Comparison: None Findings: No acute fracture or dislocation. Left shoulder arthroplasty. Intact hardware. IMPRESSION: NO ACUTE FRACTURE OR DISLOCATION. ATED BY: VERENICE NOLASCO MD DICTATED DATE/TIME: 10/16/25 4905 ORDERING PHYSICIAN: ÓSCAR DONATO PROCEDURE(s): SPLUS - SPLEEN REASON: spleenomegaly? ORDER NUMBER(s): [id number], ACCESSION NUMBER(s): [id number] Technique: Real-time ultrasound imaging of the spleen was performed with grayscale and color Doppler. Indication: spleenomegaly Comparison: US LIVER on DOS: 10/16/25 Findings: Spleen measures 8.3 x 2.9 x 3.5 cm, volume 44 cc. Accessory splenule measuring 1.7 cm. Impression: Spleen size within normal limits. ATED BY: NATIVIDAD KEY MD DICTATED DATE/TIME: 10/21/25920 ORDERING PHYSICIAN: ÓSCAR DONATO RESIDENT PROCEDURE(s): CTCAP - CHST AB PEL WO CON-NO IV/ORAL REASON: r/o abdomen mass ORDER NUMBER(s): [id number], ACCESSION NUMBER(s): [id number] Indication: r/o abdomen mass Technique: CT axial images of the chest, abdomen and pelvis are obtained without contrast. Coronal and sagittal reformats were obtained. Radiation Dose Information: CTDI volume is 9.86 mGy. Dose-length product is 691.28 mGy*cm Comparison: None FINDINGS: There is limited interpretation of the chest, abdomen and pelvis without administration of intravenous contrast. The trachea is patent. No pneumothorax. Right upper lobe tree-in-bud nodularity/ nodularity measuring up to 6 mm. No significant pleural effusion. Cardiomegaly. Coronary artery calcification disease. Aortic atherosclerotic disease. No supraclavicular or axillary lymphadenopathy. Adrenal glands unremarkable in shape. Splenic capsular calcifications. Pancreas unremarkable in shape. Liver unremarkable in shape. No hydronephrosis. Nonobstructing right renal calculi up to 3 mm. Right renal cysts measuring 1.5 cm. Marked gastric distention. Small bowel loops normal in caliber. Moderate volume stool in the colon. Postsurgical changes near the cecum. Appendix appears to be removed. Abdominal aortic atherosclerotic disease. There is diffuse irregular thickening of the bladder wall up to 13 mm which is most pronounced along the bladder dome region and posterior Bladder. Prostate measures 4.6 cm transversely. No free pelvic fluid. No inguinal lymphadenopathy. [id number] bilateral sacroiliac degenerative joint disease. Moderate thoracolumbar degenerative disc disease. Left shoulder arthroplasty. IMPRESSION: Limited evaluation without contrast. Marked gastric distention. Correlate to exclude gastroparesis, gastric outlet obstruction and other etiologies. Recommend GI consultation. Right upper lobe with nodularity measuring up to 6 mm with associated tree-in-bud nodularity, possibly secondary to bronchiolitis, atypical infection. Recommend follow-up per Fleischner society criteria for the nodules up to 6 mm. Irregular thickening of the bladder wall to 13 mm most pronounced along the posterior bladder and bladder dome region. Recommend urology consultation for cystoscopy to exclude any type of underlying bladder mass/ neoplasm with other considerations including sequela of neurogenic bladder, cystitis, outlet obstruction. Cardiomegaly. Coronary artery calcification disease. Nonobstructing right renal calculi. Atherosclerotic disease. ATED BY: NATIVIDAD KEY MD DICTATED DATE/TIME: 10/21/25 1202 Condition at Discharge: Fair Final Diagnosis/Problems List # PANCYTOPENIA # Thrombocytopenia # Acute complicated UTI # Intractable shoulder pain # Chronic lower back pain # AFib with RVR with secondary hypercoagulable state (ChadVasc 6) # Moderate tricuspid regurgitation. # Chronic hepatocellular disease. # transaminitis # Hypertensive heart disease with possible chronic diastolic heart failure # Dyslipidemia # 6 mm right lung nodule # Prediabetic, HbA1c 5.9 # BPH Discharge Disposition: Hospice - Home Discharge Instruct/Medications Diet: Regular Activity: No Restrictions, As Tolerated Scheduled Atorvastatin Calcium (Atorvastatin Calcium), 1 TAB PO DAILY, (Reported) Finasteride (Finasteride), 5 MG PO DAILY, (Reported) Folic Acid (Folic Acid), 1 MG PO DAILY, (Reported) Latanoprost (Latanoprost), 1 DROP EACHEYE qhs, (Reported) Lisinopril (Lisinopril), 5 MG PO DAILY, (Reported) Methotrexate (Methotrexate), 10 MG PO QWEEKLY, (Reported) Metoprolol Succinate (Metoprolol Succinate Er), 25 MG PO BID, (Reported) Rivaroxaban (Xarelto Tablet), 15 MG PO DAILY, (Reported) Tamsulosin Hcl (Tamsulosin Hcl), 0.4 MG PO QPM, (Reported) Discharge Statement: "Patient was advised to return to the ER or call 911 if any headaches, dizziness, shortness of breath, chest pain, abdominal pain, bleeding, fevers, or worsening of medical condition. Patient was counseled about treatment plan, medications, possible side effects, patientverbalized understanding. All questions were answered to the best of my ability. This discharge took greater then 30 minutes in planning, reviewing documentation, counseling the patient, and discussing with other team members." ASSESSMENT ASSESSMENT Assessment pancytopenia UTI ADOLFO Transaminitis Dementia Date of Service: Oct 22, 2025 Billing Provider: ARIN BOSWELL MD Common Visit Codes: 13620-VIA/OBS DISCH DAY >30min ÓSCAR DONATO RESIDENT Oct 22, 2025 18:29 ARIN BOSWELL MD Oct 23, 2025 00:06
== END 2025-10-22 16:15 | disposition hospice, home (50) | DRG 690 ==
LOC: ER 17:28 → OVERFLOW 20:48 → TELE-EAST 10-17 03:49
PROVIDERS: ADMIT Internal Medicine; ATTEND Internal Medicine
DX: N39.0 Urinary tract infection, site not specified (principal); D61.818 Other pancytopenia; D69.6 Thrombocytopenia, unspecified; N17.9 Acute kidney failure, unspecified; I50.32 Chronic diastolic (congestive) heart failure; I11.0 Hypertensive heart disease with heart failure; F03.90 Unspecified dementia, unspecified severity, without behavioral disturbance, psychotic disturbance, mood disturbance, and anxiety; K76.9 Liver disease, unspecified; I07.1 Rheumatic tricuspid insufficiency; D68.69 Other thrombophilia; M25.512 Pain in left shoulder; I48.91 Unspecified atrial fibrillation; G89.29 Other chronic pain; E78.5 Hyperlipidemia, unspecified; N40.0 Benign prostatic hyperplasia without lower urinary tract symptoms; Z86.73 Personal history of transient ischemic attack (TIA), and cerebral infarction without residual deficits; E80.6 Other disorders of bilirubin metabolism; R74.01 Elevation of levels of liver transaminase levels; R91.1 Solitary pulmonary nodule
CPT/HCPCS: 10005; 36415; 71045; 71250; 72192; 73030; 74176; 76705; 77012; 80048; 80053; 80061; 80076; 80307; 80320; 81001; 82306; 82607; 82746; 83036; 83615; 83735; 83880; 84439; 84443; 84484; 85025; 85045; 85610; 85730; 86038; 86160; 86703; 86704; 86706; 86708; 86803; 86850; 86880; 86900; 86901; 87081; 87086; 87088; 87340; 87426; 87804; 93005; 93306; G0378; J2003; J2250; J7060

== ENCOUNTER 2025-10-29 23:59 | Inpatient (IN) | payer OTHER, MEDICARE, MEDICAID ==
[~2025-10-29] VITALS: Ht 170.2 cm; Wt 65.9 kg
--- NOTE | 2025-10-30 02:03 | ED.PDOC ---
History of Present Illness HPI Comments 80-year-old male brought in by son, patient has been complaining of right-sided flank pain for the last three days. Patient was recently admitted at this hospital for urinary tract infection. Patient was sent home with antibiotics, states he has taken three days' worth of antibiotics but felt no significant improvement. Patient has been feeling mild intermittent chills. No nausea no vomiting no diarrhea. Nothing makes it better, nothing makes it worse. Son states that he has not noticed any change in mentation as patient does have dementia. Patient denies any dysuria. Chief Complaint: Flank Pain Time Seen by MD: 00:06 Primary Care Provider: CHERRIE Reviewed Notes: Nurses Notes Allergies: Coded Allergies: NO KNOWN ALLERGIES (Unverified , 01/11/20) Home Meds Reported Medications Latanoprost (LATANOPROST) 0.005 % Anne, 1 DROP EACHEYE qhs, #7.5 ML 3 Refills 01/12/20 Metoprolol Succinate (Metoprolol Succinate Er) 25 Mg Tab, 25 MG PO BID for 30 Days, MG 01/12/20 Folic Acid (Folic Acid) 1 Mg Tab, 1 MG PO DAILY for 30 Days, MG 01/12/20 Finasteride (Finasteride) 5 Mg Tab, 5 MG PO DAILY for 30 Days, MG 01/12/20 Methotrexate (Methotrexate) 2.5 Mg Tab, 10 MG PO QWEEKLY, MG 01/12/20 Tamsulosin Hcl (Tamsulosin Hcl) 0.4 Mg Cap, 0.4 MG PO QPM for 30 Days, MG 01/12/20 Lisinopril (Lisinopril) 5 Mg Tab, 5 MG PO DAILY for 30 Days, MG 01/12/20 Rivaroxaban (Xarelto Tablet) 15 Mg Tb, 15 MG PO DAILY, TAB 01/12/20 Atorvastatin Calcium (ATORVASTATIN CALCIUM) 80 Mg Tab, 1 TAB PO DAILY, #30 TAB 5 Refills 01/12/20 Information Source: Patient, Relative (Child) Mode of Arrival: Ambulatory Past Medical History PAST MEDICAL HISTORY: AFIB, CVA, Dementia, High Lipids, HTN Surgical History: Denies all surgeries Family History Family History: Reviewed,noncontributory to illness, No family hx of Cancer, No family hx of DM Social History Smoker: Non-Smoker Alcohol: Denies ETOH Use Drugs: Denies Drug Use Lives In: Home Constitutional: denies: chills, diaphoresis, fatigue, fever, malaise, sweats, weakness, others EENTM: denies: blurred vision, double vision, ear bleeding, ear discharge, ear drainage, ear pain, ear ringing, eye pain, eye redness, hearing loss, mouth pain, mouth swelling, nasal discharge, nose bleeding, nose congestion, nose pain, photophobia, tearing, throat pain, throat swelling, voice changes, others Respiratory: denies: cough, hemoptysis, orthopnea, SOB at rest, shortness of breath, SOB with excertion, stridor, wheezing, others Cardiovascular: denies: chest pain, dizzy spells, diaphoresis, Dyspnea on exertion, edema, irregular heart beat, left arm pain, lightheadedness, palpitations, PND, syncope, others Gastrointestinal: denies: abdomen distended, abdominal pain, blood streaked bowels, constipated, diarrhea, dysphagia, difficulty swallowing, hematemesis, melena, nausea, poor appetite, poor fluid intake, rectal bleeding, rectal pain, vomiting, others Genitourinary: reports: flank pain; denies: burning, dysuria, frequency, hematuria, incontinence, penile discharge, penile sore, pain, testicle pain, testicle swelling, urgency, others Neurological: denies: dizziness, fainting, headache, left sided numbness, left sided weakness, numbness, paresthesia, pre-existing deficit, right sided numbness, right sided weakness, seizure, speech problems, tingling, tremors, weakness, others Musculoskeletal: denies: back pain, gout, joint pain, joint swelling, muscle pain, muscle stiffness, neck pain, others Integumetry: denies: bruises, change in color, change in hair/nails, dryness, laceration, lesions, lumps, rash, wounds, others Allergic/Immunocompromised: denies: Difficulty Healing, Frequent Infections, Hives, Itching, others Hematologic/Lymphatic: denies: anemia, blood clots, easy bleeding, easy bruising, swollen glands, others Physical Exam General Appearance: No Apparent Distress, Normal HEENT: Normal ENT Inspection, Pharynx Normal, TMs Normal Neck: Full Range of Motion, Non-Tender, Normal, Normal Inspection Respiratory: Chest Non-Tender, Lungs Clear, No Accessory Muscle Use, No Respiratory Distress, Normal Breath Sounds Cardiovascular: No Edema, No JVD, No Murmur, No Gallop, Normal Peripheral Pulses, Regular Rate/Rhythm Breast Exam: Deferred Gastrointestinal: No Organomegaly, Non Tender, No Pulsatile Mass, Normal Bowel Sounds, Soft Genitalia: Deferred Pelvic: Deferred Rectal: Deferred Extremities: No calf tenderness, Normal capillary refill, Normal inspection, Normal range of motion, Non-tender, No pedal edema Musculoskeletal : Extremity Location: Other (Mild CVA tenderness on the right side flank) Apperance: Normal Neurologic: Alert, clinical research monitor II-XII nml as Tested, No Motor Deficits, Normal Affect, Normal Mood, No Sensory Deficits Cerebellar Function: Normal Reflexes: Normal Skin: Dry, Normal Color, Warm Lymphatic: No Adenopathy Was a procedure done? Was a procedure done?: No Differential Dx Considerations may include: Pyelonephritis, UTI, sepsis X-Ray, Labs, Meds, VS Vital Signs Date Time Temp Pulse Resp B/P (MAP) Pulse Ox O2 Delivery O2 Flow Rate FiO2 10/30/25 00:09 97.0 69 18 144/76 96 97.0 Lab Test 10/30/25 02:05 Range/Units White Blood Count Pending Red Blood Count Pending Hemoglobin Pending Hematocrit Pending Mean Corpuscular Volume Pending Mean Corpuscular Hemoglobin Pending Mean Corpuscular Hemoglobin Concent Pending Red Cell Distribution Width Pending Platelet Count Pending Mean Platelet Volume Pending Neutrophils (%) (Auto) Pending Lymphocytes (%) (Auto) Pending Monocytes (%) (Auto) Pending Basophils (%) (Auto) Pending Neutrophils # (Auto) Pending Lymphocytes # (Auto) Pending Monocytes # (Auto) Pending Sodium Level Pending Potassium Level Pending Chloride Level Pending Carbon Dioxide Level Pending Anion Gap Pending Blood Urea Nitrogen Pending Creatinine Pending Glomerular Filtration Rate Calc Pending BUN/Creatinine Ratio Pending Serum Glucose Pending Lactic Acid Level Pending Calcium Level Pending Total Bilirubin Pending Aspartate Amino Transferase (AST) Pending Alanine Aminotransferase (ALT) Pending Alkaline Phosphatase Pending Ammonia Pending Total Protein Pending Albumin Pending X-Ray, Labs, Meds, VS Comment Patient will be admitted for complicated urinary tract infection, failed outpatient treatment Patient hemodynamically stable Time of 1ST Reevaluation: 02:29 Reevaluation 1ST: Unchanged Patient Education/Counseling: Diagnosis, Treatment, Need For Follow Up Family Education/Counseling: Diagnosis, Treatment Assigned to Dr. Karl MD Change of Shift?: Yes SEPSIS Sepsis Screen Date sepsis recognized/suspect: Oct 30, 2025 Time Sepsis recognized/suspect: 0011 Recent Procedure: No On Antibiotic Therapy: No Respiratory Rate >20: No Heart Rate >90: No Temp<36 C (96.8 F) or >38.3 C: No SBP <90 or MAP <65 mmHG: No New Acute Mental Status Change: No Is the patient on CPAP, BIPAP,: No Physician Orders Complete Blood Count (10/30/25 01:53) Comprehensive Metabolic Panel (10/30/25 01:53) Ammonia (10/30/25 01:53) Urinalysis (10/30/25 01:53) Lactic Acid W/ Reflex Order (10/30/25 01:53) Blood Culture (10/30/25 01:53) Ceftriaxone 1gm/50ml (Rocephin) (10/30/25 02:00) Vital Signs Date Time Temp Pulse Resp B/P (MAP) Pulse Ox O2 Delivery O2 Flow Rate FiO2 10/30/25 00:09 97.0 69 18 144/76 96 97.0 Laboratory Tests Test 10/30/25 02:05 Lactic Acid Level Pending White Blood Count Pending Departure 1 Departure Time of Disposition: 02:03 Impression: Primary Impression: Thrombocytopenia Additional Impression: UTI (urinary tract infection) Qualified Codes: N30.01 - Acute cystitis with hematuria Disposition: ADMITTED INPATIENT Condition: Stable Discharged With: Self Critical Care Note Critical Care Time?: No Stability Stability form required: No Heart Score Heart Score: Heart Score Response (Comments) Value History N/A 0 EKG N/A 0 Age N/A 0 Risk Factors N/A 0 Troponin N/A 0 Total 0 ROBERT MARTINEZ Oct 30, 2025 02:03
[2025-10-30 02:35] LABS: Hemoglobin 11.1 g/dL (13.5-17.5); Mean Corpuscular Hemoglobin 34.2 pg (28.0-32.0)
[2025-10-30 02:37] LABS: Hematocrit 33.6 % (41.0-53.0); Mean Corpuscular Volume 102.9 fL (80.0-100.0); Nucleated Red Blood Cells % 0.3 %
[2025-10-30 02:40] VITALS: PULSE 77; RESP 18; O2SAT 100
[2025-10-30 02:46] LABS: Alanine Aminotransferase 35 U/L (7-40); Albumin 3.9 g/dL (3.2-4.8); Alkaline Phosphatase 109 U/L (46-116); Anion Gap 9 (5-15); BUN/Creatinine Ratio 20.2 (10.0-20.0); Blood Urea Nitrogen 23 mg/dL (9-23); Calcium 9.8 mg/dL (8.7-10.4); Carbon Dioxide 24 mmol/L (20-31); Chloride 104 mmol/L (98-107); Potassium 4.6 mmol/L (3.5-5.1); Sodium 137 mmol/L (136-145); Total Protein 6.9 g/dL (5.7-8.2)
[2025-10-30] MEDS ORDERED: ACETAMINOPHEN 325 MG TAB PO PRN (03:15)
[2025-10-30 03:18] LABS: Bilirubin, Total 1.9 mg/dL (0.2-1.0); Glucose 120 mg/dL (74-106)
--- NOTE | 2025-10-30 03:20 | DVHHPRES ---
History of Present Illness Resident Creating Document: JERALD PAL History of Present Illness Mr. Garth Phillip, an 80 year old male with past medical history of AFib on rivaroxaban, dementia , hypertension, questionable CVA, UTI two years ago, PAD. with history of [employer] [employer] at [place], stomach surgery for unknown indications at [place], presented to the ER with the complaints of intractable back pain. The patient was admitted to the hospital on 10/16/2025 with AFib and RVR. The son was accompanying the patient. According to the son the patient's back pain started since 10:00 p.m.. The patient's hospice nurse did home urine test, which came back positive for UTI. She started him on antibiotics, b.i.d. for 7 days, the patient's son could not mention the name. However, his dad did not complete the antibiotic course. The patient denies any chest pain, shortness of breath, fever, urinary symptoms frequency, urgency, burning sensation or any other complaints. Past medical history: As above Past surgical history: As above Allergies: None Smoking: Never Alcohol: Quit many years ago. Previously heavy drinker Drugs: Denied Home medications: Apixaban, atorvastatin, finasteride, folic acid, latanoprost, lisinopril, metoprolol succinate, tamsulosin Code status: Full code, patient wants to donate all his organ. Review of Systems Allergies: Coded Allergies: NO KNOWN ALLERGIES (Unverified , 01/11/20) Medications Current Medications Medications Dose Ordered Sig/Aleksey Route Start Time Stop Time Status Last Admin Dose Admin Enoxaparin Sodium 30 mg DAILY SC 10/30/25 10:00 UNV Acetaminophen 650 mg Q6HP PRN PO 10/30/25 03:15 Exam Vital Signs Vital Signs Date Time Temp Pulse Resp B/P (MAP) Pulse Ox O2 Delivery O2 Flow Rate FiO2 10/30/25 02:40 77 18 100 Room Air* 0 21 10/30/25 02:40 99.0 128/78 (95) 99.0 Exam Pt is lying on bed General Appearance: Alert, Oriented X3, Cooperative, Mild distress HEENT: Atraumatic, Mucous membranes moist/pink Respiratory: Clear to auscultation, Normal air movement, No added sounds Cardiovascular: Regular rate, Normal S1, Normal S2, No murmurs Abdominal/ : Active bowel sounds, Soft, no distention, no tenderness Extremities: No edema, Normal pulses, No tenderness/swelling Skin: No Significant rash, except past surgical scars Neuro: Normal speech, sensorimotor deficits none Psych/Mental Status: Mental status NL, Mood NL Nurse was there as mind reader during examination Labs/Xrays Labs Test 10/30/25 02:05 Range/Units White Blood Count 5.8 4.4-10.8 10^3/uL Red Blood Count 3.26 L 4.5-5.90 10^6/uL Hemoglobin 11.1 L 13.5-17.5 g/dL Hematocrit 33.6 L 41.0-53.0 % Mean Corpuscular Volume 102.9 H 80.0-100.0 fL Mean Corpuscular Hemoglobin 34.2 H 28.0-32.0 pg Mean Corpuscular Hemoglobin Concent 33.2 32.0-36.0 g/dL Red Cell Distribution Width 18.0 H 11.8-14.3 % Platelet Count 536 H 140-450 10^3/uL Mean Platelet Volume 7.7 6.9-10.8 fL Neutrophils (%) (Auto) 80.8 H 37.0-80.0 % Lymphocytes (%) (Auto) 9.4 L 10.0-50.0 % Monocytes (%) (Auto) 8.2 0.0-12.0 % Eosinophils (%) (Auto) 1.1 0.0-7.0 % Basophils (%) (Auto) 0.5 0.0-2.0 % Neutrophils # (Auto) 4.7 1.6-8.6 10 ^3/uL Lymphocytes # (Auto) 0.5 0.4-5.4 10 ^3/uL Monocytes # (Auto) 0.5 0-1.3 10 ^3/uL Eosinophils # (Auto) 0.1 0-0.8 10 ^3/uL Basophils # (Auto) 0 0-0.2 10 ^3/uL Nucleated Red Blood Cells 0.3 % Sodium Level 137 136-145 mmol/L Potassium Level 4.6 3.5-5.1 mmol/L Chloride Level 104 98-107 mmol/L Carbon Dioxide Level 24 20-31 mmol/L Anion Gap 9 5-15 Blood Urea Nitrogen 23 9-23 mg/dL Creatinine 1.14 0.700-1.30 mg/dL Glomerular Filtration Rate Calc 64 >90 mL/min BUN/Creatinine Ratio 20.2 H 10.0-20.0 Serum Glucose 120 H 74-106 mg/dL Lactic Acid Level 1.7 0.4-2.0 mmol/L Calcium Level 9.8 8.7-10.4 mg/dL Total Bilirubin 1.9 H 0.2-1.0 mg/dL Aspartate Amino Transferase (AST) 29 13-40 U/L Alanine Aminotransferase (ALT) 35 7-40 U/L Alkaline Phosphatase 109 46-116 U/L Ammonia < 10 L 11-32 umol/L Total Protein 6.9 5.7-8.2 g/dL Albumin 3.9 3.2-4.8 g/dL SEPSIS Sepsis Screen Date sepsis recognized/suspect: Oct 30, 2025 Time Sepsis recognized/suspect: 242 Recent Procedure: No On Antibiotic Therapy: Yes Respiratory Rate >20: No Heart Rate >90: No Temp<36 C (96.8 F) or >38.3 C: No SBP <90 or MAP <65 mmHG: No New Acute Mental Status Change: No Is the patient on CPAP, BIPAP,: No Physician Orders Urinalysis (10/30/25 01:53) Blood Culture (10/30/25 01:53) Admit (10/30/25 03:12) Allergies (10/30/25 03:12) Code Status (10/30/25 03:12) Cardiac Diet-2gna,Lofat,Lochol (10/30/25 Breakfast) * Swallow Request (10/30/25 03:12) Enoxaparin Sodium (Lovenox) (10/30/25 10:00) Acetaminophen Tablet (Tylenol Tablet) (10/30/25 03:15) Notify Md Of Changes From Base (10/30/25 03:12) School Supervisor For 24 Hours (10/30/25 03:12) Emergency Dysrhythmia Protocol (10/30/25 03:12) Rhythm Strips Once Every Shift (10/30/25 03:12) Chest Xray 1 View (10/30/25 03:15) Urinalysis (10/30/25 03:15) Vital Signs Date Time Temp Pulse Resp B/P (MAP) Pulse Ox O2 Delivery O2 Flow Rate FiO2 10/30/25 02:40 77 18 100 Room Air* 0 21 10/30/25 02:40 99.0 77 18 128/78 (95) 100 99.0 10/30/25 00:09 97.0 69 18 144/76 96 97.0 Laboratory Tests Test 10/30/25 02:05 Lactic Acid Level 1.7 mmol/L (0.4-2.0) White Blood Count 5.8 10^3/uL (4.4-10.8) Assessment/Plan Assessment/Plan Intractable back/flank pain -IV morphine 1 dose given -Tylenol -urinalysis ordered -consider kidney ultrasound Hypertensive heart disease with possible chronic diastolic heart failure (EF 55- 60%) AFib with RVR (on rivaroxaban at home) Dyslipidemia -Echo on 10/17/2025 revealed: Undetermined rhythm, biatrial enlargement. Aortic root enlargement with concentric LVH, RV enlargement. Valves are normal.EF of 55-60% with normal RV function. Moderate tricuspid regurgitation. No pericardial effusion masses or vegetations discernible. -lisinopril -healthy rivaroxaban due to inpatient status, therapeutic Lovenox given -atorvastatin BPH -finasteride Macrocytic anemia Thrombocytosis, likely reactive -iron panel -stool occult blood test ordered -reticulocyte, LDH ordered Prediabetes, recent hemoglobin A1c 5.9 -monitor blood glucose -diabetic diet Chronic hepatocellular disease Chronic low back pain Chronic shoulder pain 6 mm right lung nodule Follow up outpatient GI prophylaxis: Pantoprazole DVT prophylaxis: Lovenox Diet: Cardiac, low carb diet Goals of care discussed with the patient for more than 27 minutes: Full code status Case discussed with , patient and RN Plan discussed with: Patient, Other (RN) My Orders Orders - JERALD PAL RESIDENT Procedure Category Date Status Time Admit ADMIT 10/30/25 Transmitted 03:12 Allergies MANUEL 10/30/25 In Process 03:12 Code Status CODE 10/30/25 Transmitted 03:12 Cardiac DIET 10/30/25 Transmitted Diet-2gna,Lofat,Lochol Breakfast * Swallow Request ST 10/30/25 Transmitted 03:12 Enoxaparin Sodium PHA 10/30/25 Logged (Lovenox) 10:00 Acetaminophen Tablet PHA 10/30/25 In Process (Tylenol Tablet) 03:15 Notify Of Changes MANUEL 10/30/25 In Process From Base 03:12 School Supervisor For [facility] 10/30/25 In Process 24 Hours 03:12 Emergency Dysrhythmia [facility] 10/30/25 In Process Protocol 03:12 Rhythm Strips Once [facility] 10/30/25 In Process Every Shift 03:12 Chest Xray 1 View XY 10/30/25 Logged 03:15 Urinalysis LAB 10/30/25 Logged 03:15 Visit Coding STANDARD RES Billing Provider: JAMARCUS BEAL MD Date of Service if different f: Oct 30, 2025 JERALD PAL RESIDENT Oct 30, 2025 03:20
[2025-10-30] MEDS: MORPHINE SULFATE 4 MG/ML SYR/VIAL IV ONE (04:11)
--- NOTE | 2025-10-30 05:48 | DVH ---
CHEST RADIOGRAPH Indication: Rule out pulmonary edema Technique: Single frontal view of the chest was obtained COMPARISON: XY CHEST PORTABLE on DOS: 10/16/25 FINDINGS: Lines and Tubes: None Lungs: Clear Pleura: No effusion. No pneumothorax. Cardiomediastinal contours: Cardiomegaly. Bones: Unremarkable. Hardware within the left glenohumeral joint status post arthroplasty. IMPRESSION: 1. Cardiomegaly.
[2025-10-30] MEDS: PANTOPRAZOLE 40 MG TAB PO SCH (06:16)
[2025-10-30 07:34] LABS: Hemoglobin 10.6 g/dL (13.5-17.5); Mean Corpuscular Hemoglobin 34.8 pg (28.0-32.0); Mean Corpuscular Volume 103.7 fL (80.0-100.0); Nucleated Red Blood Cells % 0.4 %
[2025-10-30 07:36] LABS: Hematocrit 31.7 % (41.0-53.0)
[2025-10-30 07:50] VITALS: PULSE 66; RESP 17; O2SAT 94
[2025-10-30] MEDS ORDERED: ENOXAPARIN SOD 100 MG/1 ML SYRINGE SC SCH (10:00)
[2025-10-30] MEDS ORDERED: ENOXAPARIN SOD 30 MG/0.3 ML SYRINGE SC SCH (10:00)
[2025-10-30] MEDS: LISINOPRIL 5 MG TAB PO SCH (10:00)
[2025-10-30] MEDS: FINASTERIDE 5 MG TAB PO SCH (10:10)
[2025-10-30 10:11] LABS: Urine Protein, UAD TRACE (Negative)
[2025-10-30] MEDS: LATANOPROST 0.005 % OPTH(EYE) SOL 2.5ML EACHEYE SCH (10:14)
[2025-10-30] MEDS: ENOXAPARIN SOD 80 MG/0.8ML SYRINGE SC SCH (10:16)
[2025-10-30] MEDS ORDERED: HYDROcodone-ACET 10/325MG TAB PO PRN (13:15)
--- NOTE | 2025-10-30 13:18 | DVHPN2 ---
Reviewed: Care Plan, H&P, Labs, Medications, Previous Orders, Radiology Changes from previous H/P or p: No Changes Objective Vitals Vital Signs Date Time Temp Pulse Resp B/P (MAP) Pulse Ox O2 Delivery O2 Flow Rate FiO2 10/30/25 12:02 91 10/30/25 11:15 13 100/58 (72) 100 10/30/25 07:50 Room Air* 0 21 10/30/25 07:50 98.4 98.4 Intake/Output Intake and Output 10/30/25 07:00 Intake Total 50 ml Balance 50 ml Intake IV Total 50 ml Medications Current Medications Medications Dose Ordered Sig/Aleksey Route Start Time Stop Time Status Last Admin Dose Admin Acetaminophen 650 mg Q6HP PRN PO 10/30/25 03:15 Finasteride 5 mg DAILY PO 10/30/25 10:00 10/30/25 10:10 5 MG Latanoprost 1 drop DAILY EACHEYE 10/30/25 10:00 10/30/25 10:14 1 DROP Lisinopril 5 mg DAILY PO 10/30/25 10:00 Pantoprazole Sodium 40 mg DAILY@0600 PO 10/30/25 06:00 10/30/25 06:16 40 MG Enoxaparin Sodium 70 mg BID SC 10/30/25 10:00 10/30/25 10:16 70 MG Ceftriaxone Sodium 50 ml @ 100 mls/hr DAILY@09 IV 10/31/25 09:00 UNV Laboratory Results Laboratory Tests 10/30/25 02:05 10/30/25 07:14 Chemistry Test 10/30/25 02:05 Albumin 3.9 g/dL (3.2-4.8) Calcium Level 9.8 mg/dL (8.7-10.4) Total Protein 6.9 g/dL (5.7-8.2) LFT Test 10/30/25 02:05 Alanine Aminotransferase (ALT) 35 U/L (7-40) Alkaline Phosphatase 109 U/L (46-116) Aspartate Amino Transferase (AST) 29 U/L (13-40) Total Bilirubin 1.9 mg/dL (0.2-1.0) H HgA1c, TSH Test 10/30/25 02:05 Thyroid Stimulating Hormone (TSH) 1.30 uIU/mL (0.55-4.78) Urinalysis Test 10/30/25 09:26 Urine Color Yellow (Yellow) Urine Clarity Clear (Clear) Urine pH 7.0 (5.0-9.0) Urine Specific [place] 1.017 (1.001-1.035) Urine Protein Trace (Negative) H Urine Ketones Negative (Negative) Urine Blood 3+ /uL (Negative) H Urine Nitrite Negative (Negative) Urine Bilirubin Negative (Negative) Urine Urobilinogen Normal mg/dL (Negative) Urine Leukocyte Esterase 2+ /uL (Negative) Urine RBC 21 /hpf (0 - 3) Urine Microscopic WBC 30 /HPF (0-3) H Urine Squamous Epithelial Cells Few /hpf (<5) Urine Bacteria Few /hpf (None Seen) H Urine Glucose Normal mg/dL (Normal) Labs and/or images reviewed: Labs reviewed by me, Image(s) reviewed by me Assessment/Plan Assessment/Plan Intractable back pain: CT LS spine, [place] 6 mm right lung nodule AFib on Xarelto Hypertension Dementia History of CVA Hypercholesterolemia Recurrent urinary tract infections Peripheral arterial disease History of coronary artery disease History of stomach surgery unknown etiology Moderate Malnutrition Spent 70 minutes Patient is full code Advanced care planning time 20 minutes Patient is hospice revoked Plan discussed with: Patient My Orders Orders - AUGUST RODAS MD Procedure Category Date Status Time Urine Bacterial AUGUSTA 10/30/25 Logged Culture 13:11 Ceftriaxone 1gm/50ml PHA 10/31/25 Logged (Rocephin) 09:00 Ceftriaxone 1gm/50ml PHA 10/30/25 Logged (Rocephin) 13:15 Ls Spine Wo Contrast CT 10/30/25 Logged 13:12 Date of Service: Oct 30, 2025 Billing Provider: AUGUST RODAS MD Common Visit Codes: [id number] CARE 30-74 MIN AUGUST RODAS MD Oct 30, 2025 13:18
--- NOTE | 2025-10-30 14:09 | DVH ---
EXAM: CT LS SPINE WO CONTRAST INDICATION: Intractable back pain. TECHNIQUE: Axial images of the lumbar spine have been obtained along with coronal and sagittal reformatted images. CT scans at this facility use dose modulation, iterative reconstruction, and/or weight based dosing when appropriate to reduce radiation dose to as low as reasonably achievable. COMPARISON: None available. FINDINGS: ANATOMY: Transitional lumbosacral anatomy characterized by 5 [id number] lumbar type vertebral levels, lumbarization of the S1 vertebral level, and the last well-formed disc is at the S1-S2 level. VERTEBRAE: No evidence of an acute fracture. Vertebral body heights are maintained. Posterior elements are intact. Osseous structures are demineralized. DEGENERATIVE CHANGES/SPINAL CANAL/NEUROFORAMEN: Overall [id number]-[id number] degenerative changes of the lumbar spine characterized by varying degrees of posterior disc bulges, ligamentum flavum hypertrophy, and bilateral facet arthropathy. This results in high-grade spinal canal stenosis at the L4-L5 level and moderate spinal canal stenosis at the L5-S1 level secondary to broad-based posterior disc bulges, ligamentum flavum hypertrophy, and bilateral facet arthropathy. No high-grade neuroforaminal narrowing. INTERVERTEBRAL DISCS: Multilevel mild disc space narrowing. Disc chondrocalcinosis at the L4-L5 and L5-S1 levels. FACETS: Multilevel bilateral facet arthropathy that is notably [id number]-as-[id number] at the bilateral L4-L5 and bilateral L5-S1 levels. OTHER: Scattered renal cortical scarring. Right kidney inferior pole with a nonobstructing stone measuring up to 3 mm. Right kidney superior pole with a cystic lesion measuring up to 1.8 cm, which is incompletely assessed on this exam but most likely representing a benign cyst. Heterogeneous-appearance of the superior aspect of the urinary bladder with numerous diverticula measuring up to 3.5 cm. Moderate calcific atherosclerosis of the abdominal aorta and proximal branches. IMPRESSION: 1. Transitional lumbosacral anatomy as described. 2. No acute fracture or traumatic malalignment of the lumbar spine. 3. Multilevel degenerative changes of the lumbar spine resulting in high-grade spinal canal stenosis at the L4-L5 level as described. 4. Heterogeneous-appearance of the superior aspect of the urinary bladder with numerous diverticula measuring up to 3.5 cm.
[2025-10-30 19:45] VITALS: PULSE 89; RESP 16; O2SAT 100
[2025-10-30 23:15] VITALS: BP 118/67; PULSE 94; RESP 19; TEMP 98.5; O2SAT 98
[2025-10-31] VITALS (8 sets, daily range): BP systolic 110–136; BP diastolic 64–88; PULSE 67–111; RESP 16–19; TEMP 96.1–98.4; O2SAT 92–100
--- NOTE | 2025-10-31 08:39 | DVHPN2 ---
Reviewed: Care Plan, H&P, Labs, Medications, Previous Orders, Radiology Changes from previous H/P or p: No Changes Objective Vitals Vital Signs Date Time Temp Pulse Resp B/P (MAP) Pulse Ox O2 Delivery O2 Flow Rate FiO2 10/31/25 05:00 98.4 100 19 121/74 (90) 99 98.4 10/30/25 23:15 Room Air* 0 21 Intake/Output Intake and Output 10/31/25 07:00 Intake Total 250 ml Balance 250 ml Intake Oral 200 ml IV Total 50 ml # Voids 1 Medications Current Medications Medications Dose Ordered Sig/Aleksey Route Start Time Stop Time Status Last Admin Dose Admin Acetaminophen 650 mg Q6HP PRN PO 10/30/25 03:15 Finasteride 5 mg DAILY PO 10/30/25 10:00 10/30/25 10:10 5 MG Latanoprost 1 drop DAILY EACHEYE 10/30/25 10:00 10/30/25 10:14 1 DROP Lisinopril 5 mg DAILY PO 10/30/25 10:00 Pantoprazole Sodium 40 mg DAILY@0600 PO 10/30/25 06:00 10/31/25 05:35 40 MG Enoxaparin Sodium 70 mg BID SC 10/30/25 10:00 10/30/25 22:54 70 MG Ceftriaxone Sodium 50 ml @ 100 mls/hr DAILY@09 IV 10/31/25 09:00 Acetaminophen/ Hydrocodone Bitart 1 tab Q6HP PRN PO 10/30/25 13:15 Laboratory Results Laboratory Tests 10/30/25 02:05 10/30/25 07:14 Urinalysis Test 10/30/25 09:26 Urine Color Yellow (Yellow) Urine Clarity Clear (Clear) Urine pH 7.0 (5.0-9.0) Urine Specific [place] 1.017 (1.001-1.035) Urine Protein Trace (Negative) H Urine Ketones Negative (Negative) Urine Blood 3+ /uL (Negative) H Urine Nitrite Negative (Negative) Urine Bilirubin Negative (Negative) Urine Urobilinogen Normal mg/dL (Negative) Urine Leukocyte Esterase 2+ /uL (Negative) Urine RBC 21 /hpf (0 - 3) Urine Microscopic WBC 30 /HPF (0-3) H Urine Squamous Epithelial Cells Few /hpf (<5) Urine Bacteria Few /hpf (None Seen) H Urine Glucose Normal mg/dL (Normal) Microbiology Microbiology Date/Time Source Procedure Growth Status 10/30/25 02:07 Blood Blood Culture - Preliminary NO GROWTH AFTER 24 HOURS OF INCUBATION. Resulted Labs and/or images reviewed: Labs reviewed by me, Image(s) reviewed by me Assessment/Plan Assessment/Plan Intractable back pain: CT LS spine shows severe spinal canal stenosis L4-5, no fracture Chronic 6 mm right lung nodule AFib on Xarelto Hypertension Dementia History of CVA Pancytopenia: Patient refused bone marrow biopsy during last visit to this hospital one week back Hypercholesterolemia Acute urinary tract infection: Blood cultures negative urine cultures pending, continue Rocephin Recurrent urinary tract infections Peripheral arterial disease status post stenting History of coronary artery disease History of stomach surgery unknown etiology Moderate Malnutrition Spent 50 minutes Patient is DNR per patient's son Advanced care planning time 20 minutes Patient is hospice revoked Patient lives with his son Darci [phone] who is at bedside Patient was with [facility] prior to this admission Plan discussed with: Patient My Orders Orders - AUGUST RODAS MD Procedure Category Date Status Time Urine Bacterial AUGUSTA 10/30/25 In Process Culture 13:11 Ceftriaxone 1gm/50ml PHA 10/31/25 In Process (Rocephin) 09:00 Ls Spine Wo Contrast CT 10/30/25 Resulted 13:12 Hydrocodone-Acet PHA 10/30/25 In Process 10/325mg Tab ([place] 13:15 Date of Service: Oct 31, 2025 Billing Provider: AUGUST RODAS MD Common Visit Codes: [id number] INP/OBS CARE([facility]) AUGUST RODAS MD Oct 31, 2025 08:39
[2025-10-31] MEDS: METOPROLOL SUCCINATE XL 50 MG TAB PO ONE (15:34)
[2025-10-31] MEDS: TAMSULOSIN HYDROCHLORIDE 0.4 MG CAP PO SCH (18:32)
[2025-10-31] MEDS: METOPROLOL SUCCINATE XL 50 MG TAB PO SCH (21:13)
[2025-11-01] VITALS (8 sets, daily range): BP systolic 114–136; BP diastolic 59–87; PULSE 61–89; RESP 14–18; TEMP 97.2–98.3; O2SAT 93–100
--- NOTE | 2025-11-01 11:03 | DVHPN2 ---
Reviewed: Care Plan, H&P, Labs, Medications, Previous Orders, Radiology Changes from previous H/P or p: No Changes Objective Vitals Vital Signs Date Time Temp Pulse Resp B/P (MAP) Pulse Ox O2 Delivery O2 Flow Rate FiO2 11/01/25 10:06 63 122/76 11/01/25 08:49 97.6 14 99 97.6 11/01/25 08:05 Room Air* 0 21 Intake/Output Intake and Output 11/01/25 07:00 Intake Total 1930 ml Output Total 150 ml Balance 1780 ml Intake Oral 1930 ml Output Urine Total 150 ml # Voids 4 # Bowel Movements 1 Medications Current Medications Medications Dose Ordered Sig/Aleksey Route Start Time Stop Time Status Last Admin Dose Admin Acetaminophen 650 mg Q6HP PRN PO 10/30/25 03:15 Finasteride 5 mg DAILY PO 10/30/25 10:00 11/01/25 10:06 5 MG Latanoprost 1 drop DAILY EACHEYE 10/30/25 10:00 11/01/25 10:12 1 DROP Lisinopril 5 mg DAILY PO 10/30/25 10:00 11/01/25 10:06 5 MG Pantoprazole Sodium 40 mg DAILY@0600 PO 10/30/25 06:00 11/01/25 05:53 40 MG Enoxaparin Sodium 70 mg BID SC 10/30/25 10:00 10/30/25 22:54 70 MG Ceftriaxone Sodium 50 ml @ 100 mls/hr DAILY@09 IV 10/31/25 09:00 11/01/25 10:05 100 MLS/HR Acetaminophen/ Hydrocodone Bitart 1 tab Q6HP PRN PO 10/30/25 13:15 Metoprolol Succinate 25 mg BID PO 10/31/25 22:00 11/01/25 10:06 25 MG Tamsulosin HCl 0.4 mg QPM PO 10/31/25 18:00 10/31/25 18:32 0.4 MG Laboratory Results Laboratory Tests 10/30/25 02:05 10/30/25 07:14 Urinalysis Test 10/30/25 09:26 Urine Color Yellow (Yellow) Urine Clarity Clear (Clear) Urine pH 7.0 (5.0-9.0) Urine Specific [place] 1.017 (1.001-1.035) Urine Protein Trace (Negative) H Urine Ketones Negative (Negative) Urine Blood 3+ /uL (Negative) H Urine Nitrite Negative (Negative) Urine Bilirubin Negative (Negative) Urine Urobilinogen Normal mg/dL (Negative) Urine Leukocyte Esterase 2+ /uL (Negative) Urine RBC 21 /hpf (0 - 3) Urine Microscopic WBC 30 /HPF (0-3) H Urine Squamous Epithelial Cells Few /hpf (<5) Urine Bacteria Few /hpf (None Seen) H Urine Glucose Normal mg/dL (Normal) Microbiology Microbiology Date/Time Source Procedure Growth Status 10/30/25 09:26 Voided Urine Urine Culture - Preliminary Resulted 10/30/25 02:07 Blood Blood Culture - Preliminary NO GROWTH AFTER 48 HOURS OF INCUBATION. Resulted Labs and/or images reviewed: Labs reviewed by me, Image(s) reviewed by me Assessment/Plan Assessment/Plan Intractable back pain: CT LS spine shows severe spinal canal stenosis L4-5, no fracture Chronic 6 mm right lung nodule AFib on Xarelto Hypertension Dementia History of CVA Pancytopenia: Patient refused bone marrow biopsy during last visit to this hospital one week back Hypercholesterolemia Acute urinary tract infection: Blood cultures negative urine cultures negative, continue Rocephin Recurrent urinary tract infections Peripheral arterial disease status post stenting History of coronary artery disease History of stomach surgery unknown etiology Moderate Malnutrition Time Spent 50 minutes Patient is DNR per patient's son Advanced care planning time 20 minutes Patient is hospice revoked Patient lives with his son Darci [phone] who is at bedside Patient was with [facility] prior to this admission Plan discussed with: Patient My Orders Orders - AUGUST RODAS MD Procedure Category Date Status Time Metoprolol Xl PHA 10/31/25 In Process Succinate (Toprol Xl) 22:00 Tamsulosin PHA 10/31/25 In Process Hydrochloride (Flomax) 18:00 Date of Service: Nov 01, 2025 Billing Provider: AUGUST RODAS MD Common Visit Codes: [id number] INP/OBS CARE([facility]) AUGUST RODAS MD Nov 01, 2025 11:03
[2025-11-02] VITALS (8 sets, daily range): BP systolic 94–134; BP diastolic 55–90; PULSE 59–77; RESP 17–18; TEMP 97.6–98.4; O2SAT 95–100
--- NOTE | 2025-11-02 10:47 | DVHPN2 ---
Reviewed: Care Plan, H&P, Labs, Medications, Previous Orders, Radiology Changes from previous H/P or p: No Changes Objective Vitals Vital Signs Date Time Temp Pulse Resp B/P (MAP) Pulse Ox O2 Delivery O2 Flow Rate FiO2 11/02/25 08:46 89 119/62 11/02/25 05:00 97.8 18 100 97.8 11/01/25 20:00 Room Air* 0 21 Intake/Output Intake and Output 11/02/25 07:00 Intake Total 1500 ml Balance 1500 ml Intake Oral 1500 ml # Voids 5 Medications Current Medications Medications Dose Ordered Sig/Aleksey Route Start Time Stop Time Status Last Admin Dose Admin Acetaminophen 650 mg Q6HP PRN PO 10/30/25 03:15 Finasteride 5 mg DAILY PO 10/30/25 10:00 11/02/25 08:45 5 MG Latanoprost 1 drop DAILY EACHEYE 10/30/25 10:00 11/02/25 08:58 1 DROP Lisinopril 5 mg DAILY PO 10/30/25 10:00 11/02/25 08:45 5 MG Pantoprazole Sodium 40 mg DAILY@0600 PO 10/30/25 06:00 11/02/25 05:41 40 MG Enoxaparin Sodium 70 mg BID SC 10/30/25 10:00 11/02/25 08:46 70 MG Ceftriaxone Sodium 50 ml @ 100 mls/hr DAILY@09 IV 10/31/25 09:00 11/02/25 08:43 100 MLS/HR Acetaminophen/ Hydrocodone Bitart 1 tab Q6HP PRN PO 10/30/25 13:15 Metoprolol Succinate 25 mg BID PO 10/31/25 22:00 11/02/25 08:46 25 MG Tamsulosin HCl 0.4 mg QPM PO 10/31/25 18:00 11/01/25 18:02 0.4 MG Laboratory Results Laboratory Tests 10/30/25 02:05 10/30/25 07:14 Urinalysis Test 10/30/25 09:26 Urine Color Yellow (Yellow) Urine Clarity Clear (Clear) Urine pH 7.0 (5.0-9.0) Urine Specific [place] 1.017 (1.001-1.035) Urine Protein Trace (Negative) H Urine Ketones Negative (Negative) Urine Blood 3+ /uL (Negative) H Urine Nitrite Negative (Negative) Urine Bilirubin Negative (Negative) Urine Urobilinogen Normal mg/dL (Negative) Urine Leukocyte Esterase 2+ /uL (Negative) Urine RBC 21 /hpf (0 - 3) Urine Microscopic WBC 30 /HPF (0-3) H Urine Squamous Epithelial Cells Few /hpf (<5) Urine Bacteria Few /hpf (None Seen) H Urine Glucose Normal mg/dL (Normal) Microbiology Microbiology Date/Time Source Procedure Growth Status 10/30/25 09:26 Voided Urine Urine Culture - Preliminary Resulted 10/30/25 02:07 Blood Blood Culture - Preliminary NO GROWTH AFTER 72 HOURS OF INCUBATION. Resulted Labs and/or images reviewed: Labs reviewed by me, Image(s) reviewed by me Assessment/Plan Assessment/Plan Intractable back pain: CT LS spine shows severe spinal canal stenosis L4-5, no fracture Chronic 6 mm right lung nodule AFib on Xarelto Hypertension Dementia History of CVA Pancytopenia: Patient refused bone marrow biopsy during last visit to this hospital one week back Hypercholesterolemia Acute urinary tract infection: Blood cultures negative urine cultures negative, continue Rocephin Recurrent urinary tract infections Peripheral arterial disease status post stenting History of coronary artery disease History of stomach surgery unknown etiology Moderate Malnutrition Time Spent 50 minutes Patient is DNR per patient's son Advanced care planning time 20 minutes Patient is hospice revoked Patient lives with his son Darci [phone] who is at bedside Patient was with [facility] prior to this admission Continue current management Plan discussed with: Patient Date of Service: Nov 02, 2025 Billing Provider: AUGUST RODAS MD Common Visit Codes: [id number] INP/OBS CARE([facility]) AUGUST RODAS MD Nov 02, 2025 10:47
[2025-11-03 01:00] VITALS: BP 126/66; PULSE 77; RESP 18; TEMP 97.5; O2SAT 96
[2025-11-03 05:00] VITALS: BP 140/76; PULSE 69; RESP 18; TEMP 98.1; O2SAT 99
[2025-11-03 08:00] VITALS: PULSE 84
[2025-11-03 09:20] VITALS: BP 128/76; PULSE 66; RESP 15; TEMP 97.7; O2SAT 100
--- NOTE | 2025-11-03 11:06 | DVHPN2 ---
Reviewed: Care Plan, H&P, Labs, Medications, Previous Orders, Radiology Changes from previous H/P or p: No Changes Objective Vitals Vital Signs Date Time Temp Pulse Resp B/P (MAP) Pulse Ox O2 Delivery O2 Flow Rate FiO2 11/03/25 09:20 97.7 66 15 128/76 (93) 100 97.7 11/03/25 08:05 Room Air* 0 21 Intake/Output Intake and Output 11/03/25 07:00 Intake Total 1390 ml Balance 1390 ml Intake Oral 1340 ml IV Total 50 ml # Voids 4 # Bowel Movements 1 Medications Current Medications Medications Dose Ordered Sig/Aleksey Route Start Time Stop Time Status Last Admin Dose Admin Acetaminophen 650 mg Q6HP PRN PO 10/30/25 03:15 Finasteride 5 mg DAILY PO 10/30/25 10:00 11/03/25 08:56 5 MG Latanoprost 1 drop DAILY EACHEYE 10/30/25 10:00 11/03/25 08:57 1 DROP Lisinopril 5 mg DAILY PO 10/30/25 10:00 11/03/25 08:56 5 MG Pantoprazole Sodium 40 mg DAILY@0600 PO 10/30/25 06:00 11/03/25 05:11 40 MG Enoxaparin Sodium 70 mg BID SC 10/30/25 10:00 11/03/25 08:57 70 MG Ceftriaxone Sodium 50 ml @ 100 mls/hr DAILY@09 IV 10/31/25 09:00 11/03/25 08:55 100 MLS/HR Acetaminophen/ Hydrocodone Bitart 1 tab Q6HP PRN PO 10/30/25 13:15 Metoprolol Succinate 25 mg BID PO 10/31/25 22:00 11/03/25 08:55 25 MG Tamsulosin HCl 0.4 mg QPM PO 10/31/25 18:00 11/02/25 17:32 0.4 MG Laboratory Results Laboratory Tests 10/30/25 02:05 10/30/25 07:14 Urinalysis Test 10/30/25 09:26 Urine Color Yellow (Yellow) Urine Clarity Clear (Clear) Urine pH 7.0 (5.0-9.0) Urine Specific [place] 1.017 (1.001-1.035) Urine Protein Trace (Negative) H Urine Ketones Negative (Negative) Urine Blood 3+ /uL (Negative) H Urine Nitrite Negative (Negative) Urine Bilirubin Negative (Negative) Urine Urobilinogen Normal mg/dL (Negative) Urine Leukocyte Esterase 2+ /uL (Negative) Urine RBC 21 /hpf (0 - 3) Urine Microscopic WBC 30 /HPF (0-3) H Urine Squamous Epithelial Cells Few /hpf (<5) Urine Bacteria Few /hpf (None Seen) H Urine Glucose Normal mg/dL (Normal) Microbiology Microbiology Date/Time Source Procedure Growth Status 10/30/25 09:26 Voided Urine Urine Culture - Preliminary Presumptive Sophia albicans Resulted 10/30/25 02:07 Blood Blood Culture - Preliminary NO GROWTH AFTER 72 HOURS OF INCUBATION. Resulted Labs and/or images reviewed: Labs reviewed by me, Image(s) reviewed by me Assessment/Plan Assessment/Plan Intractable back pain: CT LS spine shows severe spinal canal stenosis L4-5, no fracture Chronic 6 mm right lung nodule AFib on Xarelto Hypertension Dementia History of CVA Pancytopenia: Patient refused bone marrow biopsy during last visit to this hospital one week back Hypercholesterolemia Acute urinary tract infection: Blood cultures negative urine cultures showing Sophia, continue Rocephin add diflucan Recurrent urinary tract infections Peripheral arterial disease status post stenting History of coronary artery disease History of stomach surgery unknown etiology Moderate Malnutrition Time Spent 50 minutes Patient is DNR per patient's son Advanced care planning time 20 minutes Patient is hospice revoked Patient lives with his son Darci [phone] who is at bedside Patient was with [facility] prior to this admission Continue current management Discussed with the patient's son and he is agreeable for the patient to go to long term facility for two weeks of IV antibiotics and physical therapy Plan discussed with: Patient Date of Service: Nov 03, 2025 Billing Provider: AUGUST RODAS MD Common Visit Codes: [id number] INP/OBS CARE([facility]) AUGUST RODAS MD Nov 03, 2025 11:06
[2025-11-03] MEDS: FLUCONAZOLE 200MG/100ML 100 ML IV ONE (11:15)
--- NOTE | 2025-11-03 11:19 | DVHDS2 ---
Discharge Summary Date of Admission Oct 30, 2025 at 03:12 Date of Discharge: Nov 03, 2025 Admitting Diagnosis severe Back pain recurrent falls Wounds: None Labs/Diagnostic Data: Laboratory Results Test 10/30/25 09:26 10/30/25 07:14 10/30/25 02:05 Urine Color Yellow (Yellow) Urine Clarity Clear (Clear) Urine pH 7.0 (5.0-9.0) Urine Specific [place] 1.017 (1.001-1.035) Urine Protein Trace (Negative) Urine Ketones Negative (Negative) Urine Blood 3+ /uL (Negative) Urine Nitrite Negative (Negative) Urine Bilirubin Negative (Negative) Urine Urobilinogen Normal mg/dL (Negative) Urine Leukocyte Esterase 2+ /uL (Negative) Urine RBC 21 /hpf (0 - 3) Urine Microscopic WBC 30 /HPF (0-3) Urine Squamous Epithelial Cells Few /hpf (<5) Urine Bacteria Few /hpf (None Seen) Urine Glucose Normal mg/dL (Normal) White Blood Count 4.1 10^3/uL (4.4-10.8) Red Blood Count 3.06 10^6/uL (4.5-5.90) Hemoglobin 10.6 g/dL (13.5-17.5) Hematocrit 31.7 % (41.0-53.0) Mean Corpuscular Volume 103.7 fL (80.0-100.0) Mean Corpuscular Hemoglobin 34.8 pg (28.0-32.0) Mean Corpuscular Hemoglobin Concent 33.6 g/dL (32.0-36.0) Red Cell Distribution Width 17.8 % (11.8-14.3) Platelet Count 455 10^3/uL (140-450) Mean Platelet Volume 7.4 fL (6.9-10.8) Neutrophils (%) (Auto) 69.1 % (37.0-80.0) Lymphocytes (%) (Auto) 18.1 % (10.0-50.0) Monocytes (%) (Auto) 10.7 % (0.0-12.0) Eosinophils (%) (Auto) 1.2 % (0.0-7.0) Basophils (%) (Auto) 0.9 % (0.0-2.0) Neutrophils # (Auto) 2.8 10 ^3/uL (1.6-8.6) Lymphocytes # (Auto) 0.7 10 ^3/uL (0.4-5.4) Monocytes # (Auto) 0.4 10 ^3/uL (0-1.3) Eosinophils # (Auto) 0.1 10 ^3/uL (0-0.8) Basophils # (Auto) 0 10 ^3/uL (0-0.2) Nucleated Red Blood Cells 0.4 % Reticulocyte Count (auto) 1.75 % (0.5-1.5) Lactate Dehydrogenase 293 U/L (120-246) Vitamin B12 Level 1162 pg/mL (211-911) Folic Acid > 48.00 ng/mL (>5.38) Sodium Level 137 mmol/L (136-145) Potassium Level 4.6 mmol/L (3.5-5.1) Chloride Level 104 mmol/L (98-107) Carbon Dioxide Level 24 mmol/L (20-31) Anion Gap 9 (5-15) Blood Urea Nitrogen 23 mg/dL (9-23) Creatinine 1.14 mg/dL (0.700-1.30) Glomerular Filtration Rate Calc 64 mL/min (>90) BUN/Creatinine Ratio 20.2 (10.0-20.0) Serum Glucose 120 mg/dL (74-106) Lactic Acid Level 1.7 mmol/L (0.4-2.0) Calcium Level 9.8 mg/dL (8.7-10.4) Total Bilirubin 1.9 mg/dL (0.2-1.0) Aspartate Amino Transferase (AST) 29 U/L (13-40) Alanine Aminotransferase (ALT) 35 U/L (7-40) Alkaline Phosphatase 109 U/L (46-116) Ammonia < 10 umol/L (11-32) Total Protein 6.9 g/dL (5.7-8.2) Albumin 3.9 g/dL (3.2-4.8) Thyroid Stimulating Hormone (TSH) 1.30 uIU/mL (0.55-4.78) Other Laboratory Tests 10/30/25 07:14 10/30/25 02:05 Brief Hx & Hospital Course: 1-year-old male with a history of hypertension dementia CVA pancytopenia hypercholesterolemia recurrent urinary tract infections peripheral arterial disease status post stenting history of coronary artery disease history of stomach surgery for unknown etiology AFib on Xarelto on hospice burden by family and admitted for acute exacerbation of chronic back pain. Hospice was revoked. CT LS spine showed severe spinal canal stenosis L4-5, no fracture given pain medications and physical therapy who recommended group home facility for rehab also had urinary tract infection treated with Rocephin urine cultures grew positive for [place] also added Diflucan discussed with the patient's son Kenji at the bedside and patient being discharged to group home facility for IV antibiotics for two weeks for UTI and for physical therapy for back pain. Patient is DNR condition poor Consults/Reason for consult None Operations or Procedures CT LS spine Condition at Discharge: Poor Final Diagnosis/Problems List Intractable back pain: CT LS spine shows severe spinal canal stenosis L4-5, no fracture Chronic 6 mm right lung nodule AFib on Xarelto Hypertension Dementia History of CVA Pancytopenia: Patient refused bone marrow biopsy during last visit to this hospital one week back Hypercholesterolemia Acute urinary tract infection: Blood cultures negative urine cultures showing Sophia, continue Rocephin add diflucan Recurrent urinary tract infections Peripheral arterial disease status post stenting History of coronary artery disease History of stomach surgery unknown etiology Moderate Malnutrition Discharge Disposition: Assisted Facility Discharge Instruct/Medications Diet: Cardiac 2g Na,low cholest Activity: Light activity Follow Up/Referral: Follow up with the shelter Medications: Rocephin 1 g IV daily for two weeks Diflucan 200 mg IV daily for two weeks See list for other meds Scheduled Atorvastatin Calcium (Atorvastatin Calcium), 1 TAB PO DAILY, (Reported) Finasteride (Finasteride), 5 MG PO DAILY, (Reported) Folic Acid (Folic Acid), 1 MG PO DAILY, (Reported) Latanoprost (Latanoprost), 1 DROP EACHEYE qhs, (Reported) Lisinopril (Lisinopril), 5 MG PO DAILY, (Reported) Methotrexate (Methotrexate), 10 MG PO QWEEKLY, (Reported) Metoprolol Succinate (Metoprolol Succinate Er), 25 MG PO BID, (Reported) Rivaroxaban (Xarelto Tablet), 15 MG PO DAILY, (Reported) Tamsulosin Hcl (Tamsulosin Hcl), 0.4 MG PO QPM, (Reported) 39 (Time taken for discharge summary 39 minutes) Discharge Statement: "Patient was advised to return to the ER or call 911 if any headaches, dizziness, shortness of breath, chest pain, abdominal pain, bleeding, fevers, or worsening of medical condition. Patient was counseled about treatment plan, medications, possible side effects, patientverbalized understanding. All questions were answered to the best of my ability. This discharge took greater then 30 minutes in planning, reviewing documentation, counseling the patient, and discussing with other team members." ASSESSMENT ASSESSMENT Hospital Course Improved marginally Assessment Intractable back pain: CT LS spine shows severe spinal canal stenosis L4-5, no fracture Chronic 6 mm right lung nodule AFib on Xarelto Hypertension Dementia History of CVA Pancytopenia: Patient refused bone marrow biopsy during last visit to this hospital one week back Hypercholesterolemia Acute urinary tract infection: Blood cultures negative urine cultures showing Sophia, continue Rocephin add diflucan Recurrent urinary tract infections Peripheral arterial disease status post stenting History of coronary artery disease History of stomach surgery unknown etiology Moderate Malnutrition Date of Service: Nov 03, 2025 Billing Provider: AUGUST RODAS MD Common Visit Codes: 69721-FPH/OBS DISCH DAY >30min AUGUST RODAS MD Nov 03, 2025 11:19
[2025-11-03 13:00] VITALS: BP 123/72; PULSE 59; RESP 17; TEMP 98.2; O2SAT 99
[2025-11-03 15:59] LABS: COVID19 ANTIGEN SOFIA FIA NEGATIVE (NEGATIVE)
[2025-11-03 17:23] VITALS: BP 132/81; PULSE 60; RESP 15; TEMP 97.7; O2SAT 100
[2025-11-04] MEDS ORDERED: FLUCONAZOLE 200MG/100ML 100 ML IV SCH (10:00)
== END 2025-11-03 18:45 | DRG 551 ==
LOC: ER 10-30 00:03 → OVERFLOW 10-30 03:12 → TELE-WESTW 10-30 22:14
PROVIDERS: ADMIT Family Medicine; ATTEND Family Medicine
PROC: 05HA33Z Insertion of Infusion Device into Left Brachial Vein, Percutaneous Approach (ICD-10-PCS; principal; 2025-11-03)
PROC: B54NZZA Ultrasonography of Left Upper Extremity Veins, Guidance (ICD-10-PCS; 2025-11-03)
DX: M48.061 Spinal stenosis, lumbar region without neurogenic claudication (principal); G93.41 Metabolic encephalopathy; E44.0 Moderate protein-calorie malnutrition; D61.818 Other pancytopenia; Z66 Do not resuscitate; N39.0 Urinary tract infection, site not specified; Z79.01 Long term (current) use of anticoagulants; F03.90 Unspecified dementia, unspecified severity, without behavioral disturbance, psychotic disturbance, mood disturbance, and anxiety; K76.9 Liver disease, unspecified; I11.9 Hypertensive heart disease without heart failure; D53.9 Nutritional anemia, unspecified; Z95.820 Peripheral vascular angioplasty status with implants and grafts; I48.91 Unspecified atrial fibrillation; D75.839 Thrombocytosis, unspecified; N40.0 Benign prostatic hyperplasia without lower urinary tract symptoms; G89.29 Other chronic pain; E78.00 Pure hypercholesterolemia, unspecified; I25.10 Atherosclerotic heart disease of native coronary artery without angina pectoris; R91.1 Solitary pulmonary nodule; Z86.73 Personal history of transient ischemic attack (TIA), and cerebral infarction without residual deficits; Z79.899 Other long term (current) drug therapy; Z68.22 Body mass index [BMI] 22.0-22.9, adult
CPT/HCPCS: 36415; 71045; 72131; 80053; 81001; 82140; 82607; 82746; 83605; 83615; 84443; 85025; 85045; 87040; 87086; 87088; 87426; 92610; 96365; 96375; 97163; G0378; J1450